=== PATIENT | male | born 1960 | race Caucasian/White ===

== ENCOUNTER 2016-10-27 06:13 | Inpatient (IN) ==
[2016-10-27] MEDS ORDERED: *HR* Norepinephrine 4 MG/4 ML VIAL IVC ONE (06:36)
[2016-10-27] MEDS ORDERED: *HR* Etomidate 20 MG/10 ML AMPUL IVP ONE (06:36)
[2016-10-27] MEDS ORDERED: *HR* Rocuronium Bromide 50 MG/5 ML VIAL ONE ×3 (06:36→10:22)
[2016-10-27] MEDS ORDERED: Famotidine 20 MG/2 ML VIAL ONE (06:36)
[2016-10-27] MEDS ORDERED: *HR* Phenylephrine 10 MG/ML VIAL ONE (06:36)
[2016-10-27] MEDS ORDERED: Protamine Sulfate 250 MG/25 ML VIAL IVP ONE (06:37)
[2016-10-27] MEDS ORDERED: Tranexamic Acid 1,000 MG/10 ML VIAL ONE ×2 (06:37→09:20)
[2016-10-27] MEDS ORDERED: *HR* Midazolam HCl 5 MG/5 ML VIAL IVP ONE ×2 (06:43→10:41)
[2016-10-27] MEDS ORDERED: *HR* FentaNYL (PF) 1,000 MCG/20 ML VIAL ONE (06:43)
[2016-10-27] MEDS ORDERED: Chlorhexidine Rinse 15 ML MOUTHWASH MM ONE (06:44)
[2016-10-27] MEDS ORDERED: ceFAZolin 1,000 MG in D5% in Water (Mini-Bag+) 100 ML IVPB ONE (06:44)
[2016-10-27] MEDS ORDERED: Nitroglycerin 25 MG/250 ML INFUS..BTL IVC ONE ×2 (06:48→10:36)
[2016-10-27] MEDS ORDERED: Verapamil 5 MG/2 ML VIAL ONE (06:58)
--- NOTE | 2016-10-27 07:09 | Anesthesia Evaluation PreOp ---
Date of Encounter: 10/27/16 Time of Encounter: 07:07 - Past History Planned Operation: CABG Cardiac History: [place], Angina, HTN, Hyperlipidemia Pulmonary History: Denies Any Significant HX CODING ADVISOR History: Denies Any Significant HX Other Medical History: Diabetes Type II, Other (PVD) Anesthesia History: No Prior Anesthetic Complications (Patient denies anesthetic issues, Has left BKA and right toe amputation as well as Katy and appy) Alcohol Use: rarely Drug use: none Medications and Allergies GlipiZIDE [Glucotrol] 10 mg PO DAILY 09/03/15 [History] Insulin Glargine,Hum.rec.anlog [Lantus Solostar] 48 units SQ HS 09/03/15 [ History] Metformin [Glucophage] 1,000 mg PO BIDWM 09/03/15 [History] Pravastatin Sodium [Pravachol] 40 mg PO DAILY 09/03/15 [History] Losartan [Cozaar] 50 mg PO DAILY 10/06/16 [History] Aspirin 81 mg PO DAILY #30 tab.chew 10/22/16 [Rx] Metoprolol [Lopressor] 25 mg PO BID #60 tablet 10/22/16 [Rx] Multivitamin [Multivitamins] 1 each PO DAILY 10/22/16 [History] [place]-3/Dha/Epa/Fish Oil [[place] 3 500 Softgel] 1 each PO DAILY 10/22/16 [History ] Allergies No Known Allergies Allergy (Verified 09/03/15 09:27) - Meds/Allergy Pre-op Review Medications Reviewed: Yes Allergies Reviewed: Yes Beta Blockers on Current Med List: No Anesthesia Results - Labs Laboratory Tests 10/15/16 10/15/16 14:39 14:39 WBC 7.2 Hgb 15.5 Hct 45.6 Plt Count 256 Sodium 138 Potassium 4.7 H BUN 23 Creatinine 1.22 - Imaging EKG: report reviewed, image reviewed Additional studies: Echo shows EF 60% with no valvular problems Anesthesia Exam Selected Entries 10/27/16 06:37 Temperature 98.1 F Pulse Rate 99 Respiratory Rate 18 Blood Pressure 142/81 O2 Sat by Pulse Oximetry 96 Weight: 261lbs NPO (# of Hours): 8 Pain Scale: 1 Pain Scale Used: Numeric (1 - 10) - HEENT Pupil (Motor): EOMI Mallampati: III Teeth: Edentulous Oral Opening: Greater than 3 - CODING ADVISOR LOC: Oriented CODING ADVISOR Motor: Normal RUE, Normal LUE, Normal RLE, Normal LLE, Normal Face CODING ADVISOR Sensory: Normal: RUE, LUE, RLE, LLE, Face - Cardiac Rhythm: Regular Murmur: None - Pulmonary Breath Sounds: bilateral Clear Respiratory Effort: Symmetrical Anesthesia Assess/Plan ASA Score: 4 Modified Nette Scale for Level of Consciousness: Cooperative, oriented, and tranquil Anesthetic Plan: General Autologous Blood: No Monitoring Plan: Standard Monitors, A-Line, PAC Recovery Plan: ICU (discussed risks of GA, lines, blood and need for ICU and possible NABIL discussed. Questions answered and agrees to proceed.)
[2016-10-27] MEDS ORDERED: CeFAZolin Pre 2,000 MG/100 ML 2,000 MG/100 ML BAG IVPB ONE (07:16)
[2016-10-27] MEDS ORDERED: Insulin Regular, Human 100 UNIT/ML ONE (07:27)
--- NOTE | 2016-10-27 07:28 | History & Physical Report ---
Date of Encounter: 10/27/16 Time of Encounter: 07:26 24 Hour HP Update - Instructions Instructions: If the History and Physical is less than 30 days old and was completed prior to A.M. admission and or procedure and has NOT been updated on calendar day of procedure please complete this update prior to performing procedure. - Update Patient reports changes in Medical Condition: No Changes in assessment/condition: No Changes in Medication: No Preop tests/diagnostics Reviewed: Yes Pre-Op MRSA Screen: Negative Surgery Remains Indicated: Yes Consent for Planned Operative Procedure(s) Verified: Yes - Pre-Operative Checklist Preoperative Checklist Indicated: Yes Prophylactic Antibiotic Ordered: Yes Home Medications Include Beta John Paul: Yes Beta John Paul Taken Today (Day of Surgery): Yes Beta John Paul Taken Yesterday (Day Prior to Surgery): Yes Is VTE Prophylaxis Indicated?: Yes (Carotid duplex reveals no carotid disease. Venous mapping reveals that the right greater saphenous vein is usable from below the knee to the groin. Upper extremity mapping reveals patent radial arteries. However, the ulnar arteries are small and do have calcific plaquing. He does have negative Tunde's test bilaterally. The patient did not take aspirin this morning because of gastric upset.)
[2016-10-27] MEDS ORDERED: Ringers Solution, Lactated 1,000 ML IVC SCH (07:45)
[2016-10-27] MEDS ORDERED: *HR* Magnesium Sulfate 2 GM/50 ML PIGGYBACK IVPB ONE (08:22)
[2016-10-27] MEDS ORDERED: Albumin Human 25% 25 GM/100 ML IV.SOLN IV ONE (08:22)
[2016-10-27] MEDS ORDERED: *HR* Phenylephrine 10 MG/ML VIAL IVC ONE (08:22)
[2016-10-27] MEDS ORDERED: Sodium Bicarbonate 50 MEQ/50 ML VIAL IVC ONE (08:22)
[2016-10-27] MEDS ORDERED: Mannitol 25% vial 12.5 GM/50 ML VIAL IVP ONE (08:22)
[2016-10-27] MEDS ORDERED: *HR* Heparin 10,000 UNIT/10 ML VIAL IV ONE (08:22)
[2016-10-27] MEDS ORDERED: Lidocaine 2% Syringe 100 MG/5 ML IV ONE (08:22)
--- NOTE | 2016-10-27 08:44 | Anesthesia Procedures ---
Date of Encounter: 10/27/16 Time of Encounter: 07:50 Procedures: Anesthesia - Arterial Line Consent obtained: written consent Time out performed: Yes Sedation: Versed (mg): 3 Sedation: Fentanyl (mcg): 150 Size (Gauge): 20 Length (inches): 5 Technique Used: sterile prep, guide wire technique, direct puncture technique Post-Procedure: line taped into place, dry sterile dressing placed Patient tolerated procedure: well, no complications Complications: none Site: Radial L (attempt x 1) - Central Line Placement Right IJ Consent obtained: written consent Time out performed: Yes Patient placed on monitor/pulse ox: Yes prep: mask, gown, gloves Central line prep: Chlorhexidine scrub Ultrasound used for placement: Yes Technique: Seldinger Lumen Inserted: Introducer Post procedure: sutured in place, good blood return, all ports aspirated, flushed, capped, sterile dressing applied Patient tolerated procedure: well, no complications Complications: none Comments: attempt x 1. [place] placed without inducing arrythmia. Wedge approx 52 cm
[2016-10-27] MEDS ORDERED: *HR* FentaNYL (PF) 250 MCG/5 ML VIAL ONE (10:41)
[2016-10-27] MEDS: Insulin Human Regular 100 UNIT in 0.9 % Sodium Chloride 100 ML IVC SCH ×2 (12:15→23:53)
[2016-10-27] MEDS ORDERED: Insulin Regular, Human 100 UNIT/ML IV PRN (12:41)
[2016-10-27] MEDS ORDERED: Ondansetron 4 MG/2 ML VIAL IVP PRN (12:41)
[2016-10-27] MEDS ORDERED: Potassium Chloride 40 MEQ/200 ML BAG IVPB PRN (12:41)
[2016-10-27] MEDS ORDERED: Naloxone 0.4 MG/ML INJ IVP PRN (12:41)
[2016-10-27] MEDS ORDERED: *HR* Dextrose 50 % in Water (Syg) 50 ML SYRINGE IVP PRN ×2 (12:41→14:14)
[2016-10-27] MEDS ORDERED: *HR* Promethazine 25 MG/ML VIAL IVP PRN (12:41)
--- NOTE | 2016-10-27 12:42 | Operative Note ---
Date of procedure: 10/27/16 Procedure in Detail: Preoperative diagnosis. Coronary artery disease. Postoperative diagnosis. Same. Procedures. Coronary artery bypass grafting 3 with the left internal mammary artery to the LAD and saphenous vein grafts to the obtuse marginal branch of the circumflex and posterolateral branch of the right coronary artery. Surgeon Dr. Morales Cunningham. Anesthesia Dr. Tl Spence. Asst. Fernando Oliva. Patient is a 56-year-old gentleman with a history of hypertension, hypercholesterolemia and diabetes. He is status post left below the knee amputation and amputation of his right great toe. He presented with coronary artery disease and was referred for surgery. We did check a preoperative noninvasive testing. His carotid duplex revealed no significant disease. His upper extremity arterial studies revealed patent ulnar and radial arteries, but both ulnar arteries were small and had calcific plaquing. He is right lower extremity venous duplex revealed that he had a patent and usable right greater saphenous vein. The patient was brought to the operating room where he was prepped and draped in standard fashion. He underwent a general anesthetic. The right greater saphenous vein was harvested from below the knee to the right groin. This was done through 2 small incisions using the scope. These incisions were supple and closed with a deep layer of 0 Vicryl and 2-0 Vicryl subcuticular stitch. Standard median sternotomy was performed. Left internal mammary artery was harvested in standard fashion using the Bovie electrocoagulation. This was found to be an adequate vessel with adequate pulse and flow following this, the mammary retractor was removed in the standard sternal poultry barn manager was inserted. Pericardium was opened in the midline and suspended with 2-0 silk stay sutures. Double purse string of 20 Surgilon was placed in the aorta for the aortic cannulation site. Purse string of 20 Surgilon was placed in the right atrial appendage for the venous uptake. The patient was heparinized. The aorta was cannulated without difficulty. 2 stage venous uptake cannula was inserted through the right atrial appendage. Pursestring of 3-0 silk was placed in the aorta and the cardioplegia needle was inserted through here. Patient was placed on cardiopulmonary bypass and cooled to 34.9. At this point, the aorta was crossclamped and a liter of antegrade heart plegia was given. Topical cooling with iced saline slush was also done. Attention was first turned to the right coronary artery. The posterior descending branch was dissected free with a [place] blade and found to be too small for grafting. The posterolateral branch was dissected free with the [place] [employer] blade and opened with a Match[place] blade and the Nance scissors. This had luminal 1/2 mm with mild diffuse disease. Standard end- to-side anastomosis was constructed using the saphenous vein and a 7-0 Prolene. When this is completed, the patient received an additional dose of antegrade cardioplegia and topical cooling. Attention was turned to the obtuse marginal branch of the circumflex. This was dissected free with the [place] blade and opened with a Match[place] [employer] blade and the Nance scissors. This had luminal 1/2 mm and did have mild to moderate diffuse disease. A standard end to side anastomosis was constructed using the saphenous vein and a 7-0 Prolene. When this was completed, the patient received the last dose of antegrade cardioplegia and topical cooling. Mammary pedicle was harvested. Tonsil clamp was placed distally and it was divided with the Metzenbaum scissors. Distal end was tied with 2-0 silk suture. Proximal end was trimmed and brought into the wound. The LAD was dissected free with a [place] blade. The distal half was small and diffusely diseased although we had to the tip. It was opened in the midportion with a Match[place] blade and the Nance scissors. It had a lumen of 1/2 mm with mild to moderate diffuse disease. A standard end-to-side anastomosis was constructed using the mammary artery and a 7-0 Prolene. When this was completed the bulldog clamp was removed. There was some bleeding at the tip. This was controlled using a 7-0 Prolene suture, FloSeal and fibrillar. This point the cross-clamp was removed total cross-clamp time was 47 minutes. Side biting clamp was placed in the aorta and the cardioplegia needle was removed. 2 holes were made in the aorta using the [place] blade and a 4.5 mm aortic punch. 2 proximal anastomoses were constructed in standard fashion using the saphenous veins and 5-0 Prolene' s. The circumflex anastomosis to the superior in the right anastomosis was inferior. Following this, side biting clamp was removed. Grafts were de-aired using #25-gauge needle and the previously placed bulldog clamps were removed. Distal anastomoses were inspected and found to be hemostatic. Proximal anastomoses were marked with a marker Ray-Corey sponge. A pair of ventricular pacing wires was left. A total of 3 chest tubes were left. A 3 to right angle chest tube in the left pleural space. A 32 right angle chest tube in the pericardial well. A 42 mediastinal chest tube. Patient is weaned from bypass requiring no pressors for support. He was decannulated and protamine was given. Hemostasis was good and the hemodynamics were good. Total bypass time was 86 minutes. Total cross-clamp time was 47 minutes. He been cooled to 34.9. He was returned to intensive care unit in satisfactory and stable condition.
[2016-10-27] MEDS ORDERED: 0.9 % Sodium Chloride 1,000 ML ONE (12:44)
[2016-10-27 12:56] LABS: ABG Base Excess -0.7 mEq/L (-2.0 to 3.0); ABG HCO3 25.4 mEQ/L (21-27); ABG Oxygen Saturation 99 % (95-98); ABG PCO2 47 mmHg (35-45); ABG PO2 128 mmHg (85-104); ABG TCO2 26.8 mEq/L (20-26); BUN/Creatinine Ratio 23 (6-26); Calcium 8.2 mg/dL (8.6-10.8); Carbon Dioxide 21 mEq/L (19-29); Chloride 107 mEq/L (98-109); Glucose 208 mg/dL (70-99); Magnesium 2.4 mg/dL (1.6-2.6); Osmolality,Calculated 292 (280-300); Potassium 4.4 mEq/L (3.5-4.5); Sodium 136 mEq/L (136-145); eGFR For African Americans > 60 (> 60); eGFR For Non-African Americans > 60 (> 60)
[2016-10-27 12:58] LABS: ABG PH 7.34 pH Units (7.32-7.45); Blood Urea Nitrogen 25 mg/dL (8-26)
[2016-10-27 12:59] LABS: Blood Gas FiO2 50 %; Blood Gas PEEP 5 cm H2O; Blood Gas Respiration Rate 12; Blood Gas VT 750 cc
[2016-10-27 13:01] LABS: Hematocrit 34.9 % (37.5-50.1); Hemoglobin 11.9 g/dL (12.9-16.9); Mean Corpuscular HGB Conc 34.1 g/dL (31.6-35.5); Mean Corpuscular Hemoglobin 27.9 pg (28.0-33.3); Mean Corpuscular Volume 81.9 fL (83.0-100.0); Mean Platelet Volume 9.9 fL (9.4-12.4); Platelet Count 150 K/mcL (140-400); Red Blood Count 4.26 M/mcL (4.19-5.50); Red Cell Distribution Width 13.2 % (11.5-14.5)
[2016-10-27 13:31] LABS: INR 1.2
[2016-10-27 13:33] LABS: Activated Partial Thrombo Time 27.3 Seconds (26.0-36.0)
[2016-10-27 13:37] LABS: Prothrombin Time 13.3 Seconds (9.4-12.1)
[2016-10-27] MEDS: 0.9 % Sodium Chloride 1,000 ML IVC SCH (13:56)
[2016-10-27 14:11] LABS: Basophils # 0.2 K/mcL (0.0-0.2); Eosinophils # 0.2 K/mcL (0.0-0.6); Lymphocytes # 1.8 K/mcL (0.6-4.6); Monocytes # 0.6 K/mcL (0.0-1.3); Neutrophils # 13.1 K/mcL (1.6-8.9); Platelet Estimate Normal (Normal); Reactive Lymphocytes Present (Not Present)
--- NOTE | 2016-10-27 15:49 | Electrocardiograph Report ---
Test Date: 2016-10-27 Pat Name: Luisito Llamas Department: 106 Room: [facility] Gender: M Shipper: GLENN : 1960 Requested By: Tl Spence Order Number: [id number] Reading MD: Kadeem Love DO Measurements Intervals [place] Rate: 91 P: 45 FL: 148 QRS: 131 QRSD: 145 T: -1 QT: 390 QTc: 439 Interpretive Statements SINUS RHYTHM WITH OCCASIONAL VENTRICULAR PREMATURE COMPLEXES RIGHT BUNDLE BRANCH BLOCK LEFT POSTERIOR FASCICULAR BLOCK Electronically Signed On 10-27-16 15:38:38 EST by Kadeem Love DO
[2016-10-27] MEDS: ceFAZolin 3,000 MG in D5% in Water 100 ML IVPB SCH ×2 (17:25→23:23)
[2016-10-27 17:31] LABS: ABG HCO3 24.8 mEQ/L (21-27); ABG Oxygen Saturation 100 % (95-98); ABG PCO2 40 mmHg (35-45); ABG PO2 179 mmHg (85-104)
[2016-10-27 17:32] LABS: Blood Gas FiO2 50 %
[2016-10-27 17:41] LABS: Basophils % 0.2 %; Eosinophils % 0.1 %; Hematocrit 34.8 % (37.5-50.1); Hemoglobin 11.9 g/dL (12.9-16.9); Immature Granulocytes % 1.1 % (0-4); Lymphocytes % 6.2 %; Mean Corpuscular HGB Conc 34.2 g/dL (31.6-35.5); Mean Corpuscular Hemoglobin 27.8 pg (28.0-33.3); Mean Corpuscular Volume 81.3 fL (83.0-100.0); Mean Platelet Volume 10.2 fL (9.4-12.4); Monocytes # 1.1 K/mcL (0.0-1.3); Monocytes % 7.1 %; Neutrophils # 13.2 K/mcL (1.6-8.9); Platelet Count 158 K/mcL (140-400); Red Blood Count 4.28 M/mcL (4.19-5.50); Red Cell Distribution Width 13.3 % (11.5-14.5); Segmented Neutrophils % 85.3 %
[2016-10-27 17:48] LABS: BUN/Creatinine Ratio 24 (6-26); Blood Urea Nitrogen 24 mg/dL (8-26); Calcium 8.3 mg/dL (8.6-10.8); Carbon Dioxide 21 mEq/L (19-29); Chloride 108 mEq/L (98-109); Glucose 203 mg/dL (70-99); Osmolality,Calculated 292 (280-300); Potassium 4.5 mEq/L (3.5-4.5); eGFR For African Americans > 60 (> 60); eGFR For Non-African Americans > 60 (> 60)
--- NOTE | 2016-10-27 17:51 | Electrocardiograph Report ---
[facility] Test Date: 2016-10-27 Pat Name: Luisito Llamas Department: 109 Room: [facility] Gender: M Saw Repairer: RENE : 1960 Requested By: Morales Cunningham Order Number: [id number] Reading MD: John Paul Ghosh MD Measurements Intervals [place] Rate: 99 P: 58 NC: 159 QRS: 112 QRSD: 146 T: 30 QT: 378 QTc: 435 Interpretive Statements SINUS RHYTHM RIGHT BUNDLE BRANCH BLOCK LEFT POSTERIOR FASCICULAR BLOCK BIFASCICULAR BLOCK Electronically Signed On 10-27-16 17:50:22 EST by John Paul Ghosh MD
[2016-10-27 17:52] LABS: Sodium 136 mEq/L (136-145)
[2016-10-27] MEDS: niCARdipine 20 MG/200 ML MLS IVC SCH ×4 (19:20→23:25)
[2016-10-27] MEDS: Norepinephrine 4 MG in D5% in Water 250 ML IVC SCH ×2 (19:20→23:56)
[2016-10-27] MEDS: Nitroglycerin 25 MG/250 ML INFUS..BTL IVC SCH ×3 (19:21→23:25)
[2016-10-27 19:25] LABS: ABG Base Excess 0.4 mEq/L (-2.0 to 3.0); ABG HCO3 24.6 mEQ/L (21-27); ABG Oxygen Saturation 98 % (95-98); ABG PCO2 37 mmHg (35-45); ABG PH 7.43 pH Units (7.32-7.45); ABG PO2 103 mmHg (85-104); ABG TCO2 25.7 mEq/L (20-26)
[2016-10-27 19:27] LABS: Blood Gas FiO2 30 %
[2016-10-27] MEDS ORDERED: Chlorhexidine Rinse 15 ML MOUTHWASH MM SCH (21:00)
[2016-10-27] MEDS: *HR* OxyCODONE/APAP 5/325 TABLET PO PRN (22:33)
[2016-10-28 00:47] LABS: ABG Base Excess 1.2 mEq/L (-2.0 to 3.0); ABG Oxygen Saturation 97 % (95-98); ABG PCO2 41 mmHg (35-45); ABG PH 7.41 pH Units (7.32-7.45); ABG PO2 94 mmHg (85-104); ABG TCO2 27.3 mEq/L (20-26)
[2016-10-28 00:48] LABS: Blood Gas FiO2 32 %; Blood Gas Liter Flow 3 L/MIN
[2016-10-28] MEDS: 0.9 % Sodium Chloride 1,000 ML IVC SCH (01:31)
[2016-10-28] MEDS: *HR* OxyCODONE/APAP 5/325 TABLET PO PRN ×2 (02:13→14:15)
[2016-10-28] MEDS: niCARdipine 20 MG/200 ML MLS IVC SCH (04:14)
[2016-10-28 04:22] LABS: Basophils % 0.2 %; Hematocrit 34.4 % (37.5-50.1); Hemoglobin 11.5 g/dL (12.9-16.9); Immature Granulocytes % 0.9 % (0-4); Lymphocytes # 2.1 K/mcL (0.6-4.6); Lymphocytes % 14.2 %; Mean Corpuscular HGB Conc 33.4 g/dL (31.6-35.5); Mean Corpuscular Hemoglobin 27.8 pg (28.0-33.3); Mean Corpuscular Volume 83.1 fL (83.0-100.0); Mean Platelet Volume 9.9 fL (9.4-12.4); Monocytes # 1.5 K/mcL (0.0-1.3); Neutrophils # 11.3 K/mcL (1.6-8.9); Platelet Count 155 K/mcL (140-400); Red Blood Count 4.14 M/mcL (4.19-5.50); Red Cell Distribution Width 13.7 % (11.5-14.5); Segmented Neutrophils % 74.7 %
[2016-10-28 04:33] LABS: BUN/Creatinine Ratio 24 (6-26); Blood Urea Nitrogen 24 mg/dL (8-26); Calcium 8.1 mg/dL (8.6-10.8); Carbon Dioxide 21 mEq/L (19-29); Chloride 108 mEq/L (98-109); Glucose 133 mg/dL (70-99); Magnesium 1.9 mg/dL (1.6-2.6); Osmolality,Calculated 288 (280-300); Potassium 4.1 mEq/L (3.5-4.5); Sodium 136 mEq/L (136-145); eGFR For African Americans > 60 (> 60); eGFR For Non-African Americans > 60 (> 60)
[2016-10-28 04:40] LABS: INR 1.1; Prothrombin Time 12.2 Seconds (9.4-12.1)
[2016-10-28 04:42] LABS: Activated Partial Thrombo Time 27.7 Seconds (26.0-36.0)
[2016-10-28] MEDS: *HR* Morphine 2 MG/ML SYRINGE IVP PRN ×3 (04:52→14:15)
[2016-10-28] MEDS: Nitroglycerin 25 MG/250 ML INFUS..BTL IVC SCH (04:52)
--- NOTE | 2016-10-28 07:25 | Cardiothoracic Progress Note ---
Date of Encounter: 10/28/16 Time of Encounter: 07:23 - Assessment and plan (1) Coronary artery disease Current Visit: No Status: Acute The assessment and plan as outlined above was discussed with the patient and/or family members who expressed understanding and agreement. All questions were answered. Discussion with patient/family: The patient is doing well. We will leave him in the ICU today to mobilize him. We will discontinue his Osseo-Cesia catheter, arterial line and IV fluids. Hopefully, we can discontinue his chest tubes later today or tomorrow. Hopefully , he can transfer to her room tomorrow morning. - Subjective Interval history: The patient is extubated and doing well. He has moderate postoperative pain. Vital Signs, Last 4 Hours Temp Pulse Resp BP Pulse Ox 10/28/16 06:47 99.8 F H 101 20 102/50 97 10/28/16 05:44 99.8 F H 102 24 119/50 96 10/28/16 04:49 100.1 F H 101 18 107/51 98 10/28/16 03:47 100.1 F H 104 24 104/47 97 Oxgyen Flow Rate Oxygen Flow Rate (LPM) 2 Clinical Data, last 8 Hours Output, Chest Tube Drainage 0 Amount [Mediastinal #3] Output, Chest Tube Drainage 0 Amount [Mediastinal #3] Output, Chest Tube Drainage 0 Amount [Mediastinal #3] Output, Chest Tube Drainage 20 Amount [Mediastinal #3] Output, Chest Tube Drainage 10 Amount [Mediastinal #3] Output, Chest Tube Drainage 10 Amount [Mediastinal #3] Output, Chest Tube Drainage 10 Amount [Mediastinal #3] Output, Chest Tube Drainage 10 Amount [Mediastinal #3] Output, Chest Tube Drainage 0 Amount [Mediastinal #2] Output, Chest Tube Drainage 20 Amount [Mediastinal #2] Output, Chest Tube Drainage 0 Amount [Mediastinal #2] Output, Chest Tube Drainage 10 Amount [Mediastinal #2] Output, Chest Tube Drainage 10 Amount [Mediastinal #2] Output, Chest Tube Drainage 10 Amount [Mediastinal #2] Output, Chest Tube Drainage 10 Amount [Mediastinal #2] Output, Chest Tube Drainage 10 Amount [Mediastinal #2] Output, Chest Tube Drainage 0 Amount [Mediastinal #1] Output, Chest Tube Drainage 0 Amount [Mediastinal #1] Output, Chest Tube Drainage 0 Amount [Mediastinal #1] Output, Chest Tube Drainage 15 Amount [Mediastinal #1] Output, Chest Tube Drainage 0 Amount [Mediastinal #1] Output, Chest Tube Drainage 0 Amount [Mediastinal #1] Output, Chest Tube Drainage 0 Amount [Mediastinal #1] Output, Chest Tube Drainage 15 Amount [Mediastinal #1] Output, Chest Tube Drainage 0 Amount [Mediastinal #1] Weight 10/26/16 10/27/16 10/28/16 23:59 23:59 23:59 Weight 139.253 kg Lungs are clear to percussion and auscultation. Heart is in a normal sinus rhythm. All incisions are healing well without signs of infection and the sternum is stable. Chest tube drainage is minimal. Chest x-ray reveals no pneumothorax. - Labs 10/28/16 04:08 10/28/16 04:08 Lab Results, Last 24 hours 10/27/16 10/27/16 10/27/16 12:24 12:24 12:24 WBC 16.0 H Hgb 11.9 L Hct 34.9 L Plt Count 150 INR 1.2 APTT 27.3 Sodium 136 Potassium 4.4 Chloride 107 Carbon Dioxide 21 BUN 25 Creatinine 1.11 Glucose 208 H Calcium 8.2 L Magnesium 2.4 10/27/16 10/27/16 10/28/16 17:17 17:17 04:08 WBC 15.5 H 15.1 H Hgb 11.9 L 11.5 L Hct 34.8 L 34.4 L Plt Count 158 155 INR APTT Sodium 136 Potassium 4.5 Chloride 108 Carbon Dioxide 21 BUN 24 Creatinine 1.02 Glucose 203 H Calcium 8.3 L Magnesium 10/28/16 10/28/16 04:08 04:08 WBC Hgb Hct Plt Count INR 1.1 APTT 27.7 Sodium 136 Potassium 4.1 Chloride 108 Carbon Dioxide 21 BUN 24 Creatinine 1.01 Glucose 133 H Calcium 8.1 L Magnesium 1.9 Consult Discharge Plan - Plan Referrals: Darren Virk Jr, MD [Primary Care Provider] -
[2016-10-28] MEDS: Aspirin Enteric Coated 81 MG Tablet PO SCH (09:34)
--- NOTE | 2016-10-28 11:27 | Anesthesia Evaluation Post Op ---
Date of Encounter: 10/28/16 Time of Encounter: 11:25 - Vital Signs Vital Signs: Selected Entries 10/28/16 10:00 Pulse Rate 102 Respiratory Rate 16 Blood Pressure 108/59 O2 Sat by Pulse Oximetry 92 L - Lungs Lungs: Clear Ascult./Percussion - Airway Airway: Non-obstructed - Cardiovascular Regular Rate - Mental Status Mental Status: Alert & Oriented, Answers Appropriately - Pain Pain Scale: 3 Pain Scale used: Numeric (1 - 10) - Nausea Vomiting Nausea Vomiting: Not Present - Hydration Hydration: Tolerates oral liquids, Peck catheter - Discharge PostOp Status: Transfer Patient to floor (Patient extubated. Lines and chest tubes will be DC'd. Transfer to floor when Dr. Cunningham orders it.)
[2016-10-28] MEDS ORDERED: Dextrose Gel 15 GM PO PRN ×2 (12:09)
[2016-10-28] MEDS ORDERED: D5% in Water 1,000 ML IV PRN (12:09)
[2016-10-28] MEDS: Insulin LISPRO 300 UNITS/3 ML VIAL SQ SCH (16:19)
[2016-10-28] MEDS ORDERED: Insulin LISPRO 300 UNITS/3 ML VIAL SQ SCH (21:00)
[2016-10-29] MEDS: *HR* Morphine 2 MG/ML SYRINGE IVP PRN ×4 (00:05→22:03)
[2016-10-29] MEDS: *HR* OxyCODONE/APAP 5/325 TABLET PO PRN ×4 (00:06→20:36)
[2016-10-29 03:56] LABS: Basophils % 0.2 %; Eosinophils % 0.3 %; Hematocrit 33.4 % (37.5-50.1); Immature Granulocytes % 0.9 % (0-4); Lymphocytes # 2.1 K/mcL (0.6-4.6); Mean Corpuscular HGB Conc 32.9 g/dL (31.6-35.5); Mean Corpuscular Hemoglobin 27.6 pg (28.0-33.3); Mean Corpuscular Volume 83.9 fL (83.0-100.0); Mean Platelet Volume 10.5 fL (9.4-12.4); Monocytes # 1.4 K/mcL (0.0-1.3); Neutrophils # 10.1 K/mcL (1.6-8.9); Platelet Count 145 K/mcL (140-400); Red Blood Count 3.98 M/mcL (4.19-5.50); Red Cell Distribution Width 13.7 % (11.5-14.5); Segmented Neutrophils % 73.6 %
[2016-10-29 04:08] LABS: BUN/Creatinine Ratio 24 (6-26); Blood Urea Nitrogen 21 mg/dL (8-26); Calcium 8.2 mg/dL (8.6-10.8); Carbon Dioxide 23 mEq/L (19-29); Chloride 106 mEq/L (98-109); Glucose 195 mg/dL (70-99); Osmolality,Calculated 288 (280-300); Potassium 4.2 mEq/L (3.5-4.5); Sodium 135 mEq/L (136-145); eGFR For African Americans > 60 (> 60); eGFR For Non-African Americans > 60 (> 60)
[2016-10-29] MEDS: niCARdipine 20 MG/200 ML MLS IVC SCH ×6 (07:10→07:22)
[2016-10-29] MEDS: Norepinephrine 4 MG in D5% in Water 250 ML IVC SCH (07:11)
[2016-10-29] MEDS: Nitroglycerin 25 MG/250 ML INFUS..BTL IVC SCH ×4 (07:11→07:22)
[2016-10-29] MEDS: Insulin LISPRO 300 UNITS/3 ML VIAL SQ SCH ×4 (07:12→21:49)
--- NOTE | 2016-10-29 07:38 | Cardiothoracic Progress Note ---
Date of Encounter: 10/29/16 Time of Encounter: 07:38 - Assessment and plan (1) Coronary artery disease Current Visit: No Status: Acute We will leave the Peck catheter for several days. We will transfer the patient to the floor. - Subjective Interval history: The patient has no complaints. The Peck catheter was reinserted this morning for urinary retention. Vital Signs, Last 4 Hours Temp Pulse Resp BP Pulse Ox 10/29/16 07:24 104 20 141/69 95 10/29/16 06:00 110 22 145/87 96 10/29/16 05:04 100.0 F H 10/29/16 05:00 100.0 F H 86 22 125/72 96 10/29/16 04:00 101 12 116/61 96 Oxgyen Flow Rate Oxygen Flow Rate (LPM) 2 Clinical Data, last 8 Hours Output, Urine Amount 0 Weight 10/27/16 10/28/16 10/29/16 23:59 23:59 23:59 Weight 139.253 kg 143.471 kg Lungs are clear to percussion and auscultation. Heart is in a normal sinus rhythm. All incisions are healing well without signs of infection and the sternum is stable. Chest x-ray after chest tube removal reveals no pneumothorax. - Labs 10/29/16 03:20 10/29/16 03:20 Lab Results, Last 24 hours 10/29/16 10/29/16 03:20 03:20 WBC 13.7 H Hgb 11.0 L Hct 33.4 L Plt Count 145 Sodium 135 L Potassium 4.2 Chloride 106 Carbon Dioxide 23 BUN 21 Creatinine 0.86 Glucose 195 H Calcium 8.2 L - VTE Documentation of Mechanical Device: Graduated compression elastic hosiery Consult Discharge Plan - Plan Referrals: Darren Virk Jr, MD [Primary Care Provider] -
[2016-10-29] MEDS: Aspirin Enteric Coated 81 MG Tablet PO SCH (07:49)
[2016-10-29] MEDS ORDERED: Furosemide 20 MG/2 ML VIAL IVP SCH (09:00)
[2016-10-29] MEDS ORDERED: D5% in Water 1,000 ML IV PRN (10:25)
[2016-10-29] MEDS ORDERED: *HR* Promethazine 25 MG/ML VIAL IVP PRN (10:25)
[2016-10-29] MEDS ORDERED: Dextrose Gel 15 GM PO PRN ×2 (10:25)
[2016-10-29] MEDS ORDERED: Ondansetron 4 MG/2 ML VIAL IVP PRN (10:25)
[2016-10-29] MEDS ORDERED: Naloxone 0.4 MG/ML INJ IVP PRN (10:25)
[2016-10-29] MEDS ORDERED: *HR* Dextrose 50 % in Water (Syg) 50 ML SYRINGE IVP PRN (10:25)
[2016-10-29 11:12] LABS: ABG Glucose 338 mg/dL (60-95); ABG HCO3 24.4 mEQ/L (21-27); ABG Hematocrit 44 % (35-51); ABG Ionized Calcium 1.13 mmol/L (1.15-1.35); ABG Oxygen Saturation 100 % (95-98); ABG PCO2 52 mmHg (35-45); ABG PH 7.28 pH Units (7.32-7.45); ABG PO2 299 mmHg (85-104)
[2016-10-29 11:12] LABS: ABG Base Excess -5.4 mEq/L (-2.0 to 3.0); ABG Glucose 247 mg/dL (60-95); ABG HCO3 22.3 mEQ/L (21-27); ABG Hematocrit 39 % (35-51); ABG Ionized Calcium 0.98 mmol/L (1.15-1.35); ABG Oxygen Saturation 99 % (95-98); ABG PCO2 52 mmHg (35-45); ABG PH 7.24 pH Units (7.32-7.45); ABG PO2 135 mmHg (85-104); ABG TCO2 23.9 mEq/L (20-26)
[2016-10-29 11:13] LABS: ABG Base Excess -0.8 mEq/L (-2.0 to 3.0); ABG Glucose 291 mg/dL (60-95); ABG HCO3 26.4 mEQ/L (21-27); ABG Hematocrit 34 % (35-51); ABG Ionized Calcium 1.04 mmol/L (1.15-1.35); ABG Oxygen Saturation 100 % (95-98); ABG PCO2 55 mmHg (35-45); ABG PH 7.29 pH Units (7.32-7.45); ABG PO2 212 mmHg (85-104); ABG TCO2 28.1 mEq/L (20-26)
[2016-10-29 11:13] LABS: ABG Base Excess -1.7 mEq/L (-2.0 to 3.0); ABG Glucose 288 mg/dL (60-95); ABG HCO3 24.3 mEQ/L (21-27); ABG Hematocrit 30 % (35-51); ABG Ionized Calcium 1.02 mmol/L (1.15-1.35); ABG Oxygen Saturation 100 % (95-98); ABG PCO2 46 mmHg (35-45); ABG PH 7.33 pH Units (7.32-7.45); ABG PO2 394 mmHg (85-104); ABG TCO2 25.7 mEq/L (20-26)
[2016-10-29 11:13] LABS: ABG Base Excess -1.7 mEq/L (-2.0 to 3.0); ABG Glucose 236 mg/dL (60-95); ABG HCO3 24.7 mEQ/L (21-27); ABG Hematocrit 28 % (35-51); ABG Ionized Calcium 1.03 mmol/L (1.15-1.35); ABG Oxygen Saturation 100 % (95-98); ABG PCO2 49 mmHg (35-45); ABG PH 7.31 pH Units (7.32-7.45); ABG PO2 318 mmHg (85-104); ABG TCO2 26.2 mEq/L (20-26)
[2016-10-29] MEDS: *HR* Metformin 500 MG TABLET PO SCH ×2 (11:57→17:27)
[2016-10-29] MEDS: Multivit/Ca/Min/Fe/FA 1 TAB TABLET PO SCH (11:57)
[2016-10-29] MEDS: *HR* GlipiZIDE XL (24 HR) 10 MG TABLET PO SCH (11:57)
[2016-10-29] MEDS: *HR* Heparin 5,000 UNIT/ML VIAL SQ SCH (17:27)
[2016-10-29] MEDS ORDERED: Chlorhexidine Rinse 15 ML MOUTHWASH MM SCH (21:00)
[2016-10-29] MEDS: Chlorhexidine Rinse 15 ML MOUTHWASH MM SCH (21:48)
[2016-10-29] MEDS: Insulin DETEMIR 100 UNIT/ML X5UNITS SQ SCH (21:49)
[2016-10-29] MEDS: Furosemide 20 MG/2 ML VIAL IVP SCH (21:49)
[2016-10-30] MEDS: *HR* OxyCODONE/APAP 5/325 TABLET PO PRN ×6 (00:49→22:58)
[2016-10-30 04:58] LABS: Basophils % 0.2 %; Eosinophils # 0.2 K/mcL (0.0-0.6); Eosinophils % 1.6 %; Hematocrit 31.4 % (37.5-50.1); Hemoglobin 10.3 g/dL (12.9-16.9); Immature Granulocytes % 0.8 % (0-4); Lymphocytes # 2.2 K/mcL (0.6-4.6); Lymphocytes % 19.9 %; Mean Corpuscular HGB Conc 32.8 g/dL (31.6-35.5); Mean Corpuscular Hemoglobin 27.9 pg (28.0-33.3); Mean Corpuscular Volume 85.1 fL (83.0-100.0); Mean Platelet Volume 10.3 fL (9.4-12.4); Monocytes # 1.1 K/mcL (0.0-1.3); Monocytes % 10.2 %; Neutrophils # 7.4 K/mcL (1.6-8.9); Platelet Count 152 K/mcL (140-400); Red Blood Count 3.69 M/mcL (4.19-5.50); Red Cell Distribution Width 13.8 % (11.5-14.5); Segmented Neutrophils % 67.3 %
[2016-10-30 05:12] LABS: BUN/Creatinine Ratio 29 (6-26); Blood Urea Nitrogen 27 mg/dL (8-26); Calcium 8.4 mg/dL (8.6-10.8); Carbon Dioxide 23 mEq/L (19-29); Chloride 105 mEq/L (98-109); Glucose 147 mg/dL (70-99); Osmolality,Calculated 290 (280-300); Potassium 4.3 mEq/L (3.5-4.5); Sodium 136 mEq/L (136-145); eGFR For African Americans > 60 (> 60); eGFR For Non-African Americans > 60 (> 60)
[2016-10-30] MEDS: *HR* Heparin 5,000 UNIT/ML VIAL SQ SCH ×2 (06:33→16:51)
[2016-10-30] MEDS: Insulin LISPRO 300 UNITS/3 ML VIAL SQ SCH ×4 (08:07→21:39)
[2016-10-30] MEDS: Aspirin Enteric Coated 81 MG Tablet PO SCH (08:09)
[2016-10-30] MEDS: Multivit/Ca/Min/Fe/FA 1 TAB TABLET PO SCH (08:09)
[2016-10-30] MEDS: Furosemide 20 MG/2 ML VIAL IVP SCH ×2 (08:09→21:15)
[2016-10-30] MEDS: *HR* GlipiZIDE XL (24 HR) 10 MG TABLET PO SCH (08:09)
[2016-10-30] MEDS: *HR* Metformin 500 MG TABLET PO SCH ×2 (08:10→16:50)
[2016-10-30] MEDS: Chlorhexidine Rinse 15 ML MOUTHWASH MM SCH ×2 (08:10→21:14)
--- NOTE | 2016-10-30 09:49 | Cardiothoracic Progress Note ---
Date of Encounter: 10/30/16 Time of Encounter: 09:47 - Assessment and plan (1) Coronary artery disease Current Visit: No Status: Acute The patient is recovering well from his CABG3. He has been unable to ambulate due to his left BKA and recent CABG. Physical therapy has been working with the patient to improve his range of motion and strength. He patient will require ECF placement as a bridge to home upon discharge. The assessment and plan as outlined above was discussed with the patient and/or family members who expressed understanding and agreement. All questions were answered. Qualifiers: Coronary Disease-Associated Artery/Lesion type: [place] artery [place] vs. transplanted heart: [place] heart Associated angina: with stable angina Qualified Code(s): I25.118 - Atherosclerotic heart disease of [place] coronary artery with other forms of angina pectoris - Subjective Procedure(s) Performed: POD#3 S/P CABG3 Interval history: The patient is resting comfortably in his hospital bed. Vital Signs, Last 4 Hours Temp Pulse Resp BP Pulse Ox 10/30/16 07:16 97.9 F 93 20 120/73 97 Oxgyen Flow Rate Oxygen Flow Rate (LPM) 3 Weight 10/28/16 10/29/16 10/30/16 23:59 23:59 23:59 Weight 143.8 kg 143.8 kg - Physical Examination General: Conversant, No Apparent Distress Neck: No JVD, Normal carotid pulses Cardiac: Reg Rate and Rhythm, Normal S1 and S2, No Murmur Incision: No signs of infection, Dry/intact dressing Sternum: Stable Lungs: Normal Breath Sounds, No Wheeze, Rales, Rhonchi Neuro: Alert and responsive, No focal deficits noted Vascular: Normal capillary refill Extremities: No Clubbing, No Cyanosis, No Edema - Labs 10/30/16 04:20 10/30/16 04:20 Lab Results, Last 24 hours 10/30/16 10/30/16 04:20 04:20 WBC 10.9 Hgb 10.3 L Hct 31.4 L Plt Count 152 Sodium 136 Potassium 4.3 Chloride 105 Carbon Dioxide 23 BUN 27 H Creatinine 0.94 Glucose 147 H Calcium 8.4 L - VTE Documentation of Mechanical Device: Graduated compression elastic hosiery Consult Discharge Plan - Plan Referrals: Sweta Peguero CNP [Partnered Physician] - 11/06/16 10:40 am Darren Virk Jr, MD [Primary Care Provider] - (SENT WEB REQUEST ON 10-29-16 @ [id number]) Morales Cunningham MD [Partnered Physician] - 11/27/16 1:15 pm Rush Leal MD [Partnered Physician] - 11/27/16 9:00 am (SENT WEB REQUEST ON 10-29-16 @ 0955 PATIENT HAS A FOLLOW UP FOR [facility] ON 10-27-16 @ 0900 BUT IT IS 4 WEEKS OUT.)
[2016-10-30] MEDS: *HR* Morphine 2 MG/ML SYRINGE IVP PRN (10:44)
[2016-10-30] MEDS: Insulin DETEMIR 100 UNIT/ML X5UNITS SQ SCH (21:39)
[2016-10-31] MEDS: *HR* OxyCODONE/APAP 5/325 TABLET PO PRN ×2 (06:18→20:16)
[2016-10-31] MEDS: *HR* Heparin 5,000 UNIT/ML VIAL SQ SCH ×2 (06:19→16:05)
--- NOTE | 2016-10-31 07:18 | Cardiothoracic Progress Note ---
Date of Encounter: 10/31/16 Time of Encounter: 07:16 - Assessment and plan (1) Coronary artery disease Current Visit: No Status: Acute The patient is recovering well from his CABG3. His activity is increasing slowly, though he was unable to ambulate yesterday due to swelling and his left BKA stump. Physical therapy will continue working with the patient to increase range of motion and strength. The patient will require ECF placement as a bridge to home upon discharge. The assessment and plan as outlined above was discussed with the patient and/or family members who expressed understanding and agreement. All questions were answered. Qualifiers: Coronary Disease-Associated Artery/Lesion type: [place] artery [place] vs. transplanted heart: [place] heart Associated angina: with stable angina Qualified Code(s): I25.118 - Atherosclerotic heart disease of [place] coronary artery with other forms of angina pectoris - Subjective Procedure(s) Performed: POD#4 S/P CABG3 Interval history: The patient is resting comfortably in his hospital bed. He was able to sit in a chair for at least 10 hours yesterday without difficulty. Vital Signs, Last 4 Hours Pulse 10/31/16 04:15 92 Oxgyen Flow Rate Oxygen Flow Rate (LPM) 3 Weight 10/29/16 10/30/16 10/31/16 23:59 23:59 23:59 Weight 143.8 kg 143.8 kg - Physical Examination General: Conversant, No Apparent Distress Neck: No JVD, Normal carotid pulses Cardiac: Reg Rate and Rhythm, Normal S1 and S2, No Murmur Incision: No signs of infection, Dry/intact dressing Sternum: Stable Lungs: Normal Breath Sounds, No Wheeze, Rales, Rhonchi Neuro: Alert and responsive, No focal deficits noted Vascular: Normal capillary refill Musculoskeletal: No Chest Wall Tenderness Extremities: No Clubbing, No Cyanosis, No Edema - Labs 10/30/16 04:20 10/30/16 04:20 - VTE Documentation of Mechanical Device: Graduated compression elastic hosiery Consult Discharge Plan - Plan Referrals: Sweta Peguero CNP [Partnered Physician] - Darren Virk Jr, MD [Primary Care Provider] - (SENT WEB REQUEST ON 10-29-16 @ [id number]) Morales Cunningham MD [Partnered Physician] - 11/27/16 1:15 pm Rush Leal MD [Partnered Physician] - 11/27/16 9:00 am (SENT WEB REQUEST ON 10-29-16 @ 1409 PATIENT HAS A FOLLOW UP FOR [facility] ON 10-27-16 @ 0900 BUT IT IS 4 WEEKS OUT.)
[2016-10-31] MEDS: Multivit/Ca/Min/Fe/FA 1 TAB TABLET PO SCH (07:51)
[2016-10-31] MEDS: *HR* Metformin 500 MG TABLET PO SCH ×2 (07:51→16:04)
[2016-10-31] MEDS: *HR* GlipiZIDE XL (24 HR) 10 MG TABLET PO SCH (07:51)
[2016-10-31] MEDS: Furosemide 20 MG/2 ML VIAL IVP SCH ×2 (07:51→20:17)
[2016-10-31] MEDS: Aspirin Enteric Coated 81 MG Tablet PO SCH (07:51)
[2016-10-31] MEDS: Insulin LISPRO 300 UNITS/3 ML VIAL SQ SCH ×4 (07:52→20:20)
[2016-10-31] MEDS: *HR* Morphine 2 MG/ML SYRINGE IVP PRN ×2 (07:52→16:04)
[2016-10-31] MEDS: Chlorhexidine Rinse 15 ML MOUTHWASH MM SCH ×2 (07:52→20:19)
[2016-10-31] MEDS: Insulin DETEMIR 100 UNIT/ML X5UNITS SQ SCH (20:19)
[2016-11-01] MEDS: *HR* Morphine 2 MG/ML SYRINGE IVP PRN ×2 (00:07→12:31)
[2016-11-01] MEDS: *HR* Heparin 5,000 UNIT/ML VIAL SQ SCH ×2 (06:09→17:13)
[2016-11-01] MEDS: *HR* OxyCODONE/APAP 5/325 TABLET PO PRN ×2 (06:09→22:57)
[2016-11-01] MEDS: *HR* Metformin 500 MG TABLET PO SCH ×2 (08:12→17:13)
[2016-11-01] MEDS: Furosemide 20 MG/2 ML VIAL IVP SCH ×2 (08:12→20:11)
[2016-11-01] MEDS: Aspirin Enteric Coated 81 MG Tablet PO SCH (08:13)
[2016-11-01] MEDS: *HR* GlipiZIDE XL (24 HR) 10 MG TABLET PO SCH (08:13)
[2016-11-01] MEDS: Chlorhexidine Rinse 15 ML MOUTHWASH MM SCH ×2 (08:13→20:11)
[2016-11-01] MEDS: Multivit/Ca/Min/Fe/FA 1 TAB TABLET PO SCH (08:13)
[2016-11-01] MEDS: Insulin LISPRO 300 UNITS/3 ML VIAL SQ SCH ×4 (08:13→20:13)
--- NOTE | 2016-11-01 08:35 | Cardiothoracic Progress Note ---
Date of Encounter: 11/01/16 Time of Encounter: 08:34 - Assessment and plan (1) Coronary artery disease Current Visit: No Status: Acute The patient is recovering well from his CABG3. His activity is increasing slowly, and he was able to ambulate from yesterday. Physical therapy will continue working with the patient to increase range of motion and strength. The patient will require ECF placement as a bridge to home upon discharge. The assessment and plan as outlined above was discussed with the patient and/or family members who expressed understanding and agreement. All questions were answered. Qualifiers: Coronary Disease-Associated Artery/Lesion type: [place] artery [place] vs. transplanted heart: [place] heart Associated angina: with stable angina Qualified Code(s): I25.118 - Atherosclerotic heart disease of [place] coronary artery with other forms of angina pectoris - Subjective Procedure(s) Performed: POD#5 S/P CABG3 Interval history: The patient is resting comfortably in his hospital bed. He was able to sit in a chair and ambulate in his room yesterday. Vital Signs, Last 4 Hours Temp Pulse Resp BP Pulse Ox 11/01/16 06:53 98.3 F 93 19 134/80 95 Oxgyen Flow Rate Oxygen Flow Rate (LPM) 3 Weight 10/30/16 10/31/16 11/01/16 23:59 23:59 23:59 Weight 143.8 kg 144.4 kg - Physical Examination General: Conversant, No Apparent Distress Neck: No JVD, Normal carotid pulses Cardiac: Reg Rate and Rhythm, Normal S1 and S2, No Murmur Incision: No signs of infection, Dry/intact dressing Sternum: Stable Lungs: Normal Breath Sounds, No Wheeze, Rales, Rhonchi Neuro: Alert and responsive, No focal deficits noted Vascular: Normal capillary refill Musculoskeletal: No Chest Wall Tenderness Extremities: No Clubbing, No Cyanosis, No Edema - Labs 10/30/16 04:20 10/30/16 04:20 - VTE Documentation of Mechanical Device: Graduated compression elastic hosiery Consult Discharge Plan - Plan Referrals: Sweta Peguero CNP [Partnered Physician] - Darren Virk Jr, MD [Primary Care Provider] - (SENT WEB REQUEST ON 10-29-16 @ [phone]) Morales Cunningham MD [Partnered Physician] - 11/27/16 1:15 pm Rush Leal MD [Partnered Physician] - 11/27/16 9:00 am (SENT WEB REQUEST ON 10-29-16 @ [phone] PATIENT HAS A FOLLOW UP FOR [facility] ON 10-27-16 @ 0900 BUT IT IS 4 WEEKS OUT.)
[2016-11-01] MEDS: Insulin DETEMIR 100 UNIT/ML X5UNITS SQ SCH (20:18)
[2016-11-02] MEDS: *HR* Heparin 5,000 UNIT/ML VIAL SQ SCH ×2 (05:06→17:15)
[2016-11-02] MEDS: *HR* GlipiZIDE XL (24 HR) 10 MG TABLET PO SCH (08:15)
[2016-11-02] MEDS: Insulin LISPRO 300 UNITS/3 ML VIAL SQ SCH ×4 (08:15→21:33)
[2016-11-02] MEDS: Aspirin Enteric Coated 81 MG Tablet PO SCH (08:15)
[2016-11-02] MEDS: Furosemide 20 MG/2 ML VIAL IVP SCH ×2 (08:16→20:02)
[2016-11-02] MEDS: *HR* Metformin 500 MG TABLET PO SCH ×2 (08:16→17:15)
[2016-11-02] MEDS: *HR* OxyCODONE/APAP 5/325 TABLET PO PRN ×2 (08:16→21:33)
[2016-11-02] MEDS: Chlorhexidine Rinse 15 ML MOUTHWASH MM SCH ×2 (08:16→20:02)
[2016-11-02] MEDS: Multivit/Ca/Min/Fe/FA 1 TAB TABLET PO SCH (08:16)
[2016-11-02] MEDS: *HR* Morphine 2 MG/ML SYRINGE IVP PRN ×3 (08:47→20:02)
--- NOTE | 2016-11-02 11:47 | Cardiothoracic Progress Note ---
Date of Encounter: 11/02/16 Time of Encounter: 11:46 - Assessment and plan (1) Coronary artery disease Current Visit: No Status: Acute The patient is recovering well from his CABG3. His activity is increasing slowly, and he was able to ambulate from yesterday. Physical therapy will continue working with the patient to increase range of motion and strength. The patient will require ECF placement as a bridge to home upon discharge. The assessment and plan as outlined above was discussed with the patient and/or family members who expressed understanding and agreement. All questions were answered. Qualifiers: Coronary Disease-Associated Artery/Lesion type: [place] artery [place] vs. transplanted heart: [place] heart Associated angina: with stable angina Qualified Code(s): I25.118 - Atherosclerotic heart disease of [place] coronary artery with other forms of angina pectoris - Subjective Procedure(s) Performed: POD#6 S/P CABG3 Interval history: The patient is resting comfortably in his hospital bed. He was able to sit in a chair and ambulate in his room yesterday. Vital Signs, Last 4 Hours Pulse 11/02/16 08:45 89 Oxgyen Flow Rate Oxygen Flow Rate (LPM) 2 Weight 10/31/16 11/01/16 11/02/16 23:59 23:59 23:59 Weight 144.4 kg 144.4 kg - Physical Examination General: Conversant, No Apparent Distress Neck: No JVD, Normal carotid pulses Cardiac: Reg Rate and Rhythm, Normal S1 and S2, No Murmur Incision: No signs of infection, Dry/intact dressing Sternum: Stable Lungs: Normal Breath Sounds, No Wheeze, Rales, Rhonchi Neuro: Alert and responsive, No focal deficits noted Vascular: Normal capillary refill Musculoskeletal: No Chest Wall Tenderness Extremities: No Clubbing, No Cyanosis, No Edema - Labs 10/30/16 04:20 10/30/16 04:20 - VTE Documentation of Mechanical Device: Graduated compression elastic hosiery Consult Discharge Plan - Plan Referrals: Sweta Peguero CNP [Partnered Physician] - Darren Virk Jr, MD [Primary Care Provider] - (SENT WEB REQUEST ON 10-29-16 @ [phone]) Morales Cunningham MD [Partnered Physician] - 11/27/16 1:15 pm Rush Leal MD [Partnered Physician] - 11/27/16 9:00 am (SENT WEB REQUEST ON 10-29-16 @ [phone] PATIENT HAS A FOLLOW UP FOR [facility] ON 10-27-16 @ 0900 BUT IT IS 4 WEEKS OUT.)
[2016-11-02] MEDS: Insulin DETEMIR 100 UNIT/ML X5UNITS SQ SCH (21:33)
[2016-11-03] MEDS: *HR* OxyCODONE/APAP 5/325 TABLET PO PRN ×3 (04:30→23:22)
[2016-11-03] MEDS: *HR* Heparin 5,000 UNIT/ML VIAL SQ SCH ×2 (06:40→18:07)
--- NOTE | 2016-11-03 07:20 | Cardiothoracic Progress Note ---
Date of Encounter: 11/03/16 Time of Encounter: 07:18 - Assessment and plan (1) Coronary artery disease Current Visit: No Status: Acute The patient is recovering well from his CABG3. His activity is increasing slowly, and he was able to ambulate from yesterday. Physical therapy will continue working with the patient to increase range of motion and strength. Though the patient's sternum is stable to both deep breathing and coughing, he has complained of some increasing pain in this region. A chest x-ray will be performed this morning to assess the sternum. The patient will require ECF placement as a bridge to home upon discharge. The assessment and plan as outlined above was discussed with the patient and/or family members who expressed understanding and agreement. All questions were answered. Qualifiers: Coronary Disease-Associated Artery/Lesion type: [place] artery [place] vs. transplanted heart: [place] heart Associated angina: with stable angina Qualified Code(s): I25.118 - Atherosclerotic heart disease of [place] coronary artery with other forms of angina pectoris - Subjective Procedure(s) Performed: POD#7 S/P CABG3 Interval history: The patient is resting comfortably in his hospital bed. He was able to sit in a chair and ambulate in the hallway yesterday. He complains of some movement in the lower portion of his sternum. Vital Signs, Last 4 Hours Temp Pulse Resp BP Pulse Ox 11/03/16 07:10 98.6 F 81 20 123/67 11/03/16 04:31 97.3 F L 88 22 120/70 96 11/03/16 04:30 84 Oxgyen Flow Rate Oxygen Flow Rate (LPM) 0 Weight 11/01/16 11/02/16 11/03/16 23:59 23:59 23:59 Weight 144.4 kg 144.4 kg 143.4 kg - Physical Examination General: Conversant, No Apparent Distress Neck: No JVD, Normal carotid pulses Cardiac: Reg Rate and Rhythm, Normal S1 and S2, No Murmur Incision: No signs of infection, Dry/intact dressing Sternum: Stable Lungs: Normal Breath Sounds, No Wheeze, Rales, Rhonchi Neuro: Alert and responsive, No focal deficits noted Vascular: Normal capillary refill Extremities: No Clubbing, No Cyanosis, No Edema - Labs 10/30/16 04:20 10/30/16 04:20 - VTE Documentation of Mechanical Device: Graduated compression elastic hosiery Consult Discharge Plan - Plan Referrals: Sweta Peguero CNP [Partnered Physician] - Darren Virk Jr, MD [Primary Care Provider] - (SENT WEB REQUEST ON 10-29-16 @ [id number]) Morales Cunningham MD [Partnered Physician] - 11/27/16 1:15 pm Rush Leal MD [Partnered Physician] - 11/27/16 9:00 am (SENT WEB REQUEST ON 10-29-16 @ 0968 PATIENT HAS A FOLLOW UP FOR [facility] ON 10-27-16 @ 0900 BUT IT IS 4 WEEKS OUT.)
[2016-11-03] MEDS: Chlorhexidine Rinse 15 ML MOUTHWASH MM SCH ×2 (08:13→20:31)
[2016-11-03] MEDS: *HR* Metformin 500 MG TABLET PO SCH ×2 (08:13→16:48)
[2016-11-03] MEDS: *HR* GlipiZIDE XL (24 HR) 10 MG TABLET PO SCH (08:14)
[2016-11-03] MEDS: Multivit/Ca/Min/Fe/FA 1 TAB TABLET PO SCH (08:14)
[2016-11-03] MEDS: Aspirin Enteric Coated 81 MG Tablet PO SCH (08:14)
[2016-11-03] MEDS: Furosemide 20 MG/2 ML VIAL IVP SCH ×2 (08:16→20:31)
[2016-11-03] MEDS: Insulin LISPRO 300 UNITS/3 ML VIAL SQ SCH ×4 (08:21→20:57)
[2016-11-03] MEDS: Insulin DETEMIR 100 UNIT/ML X5UNITS SQ SCH (20:57)
[2016-11-04] MEDS: *HR* OxyCODONE/APAP 5/325 TABLET PO PRN ×2 (04:12→08:52)
[2016-11-04] MEDS: *HR* Heparin 5,000 UNIT/ML VIAL SQ SCH (05:38)
--- NOTE | 2016-11-04 07:10 | Discharge Summary ---
Date of Encounter: 11/04/16 Time of Encounter: 07:06 - Discharge Diagnosis (1) Coronary artery disease Priority: Primary Status: Acute Qualifiers: Coronary Disease-Associated Artery/Lesion type: [place] artery [place] vs. transplanted heart: [place] heart Associated angina: with stable angina Qualified Code(s): I25.118 - Atherosclerotic heart disease of [place] coronary artery with other forms of angina pectoris - Discharge Medications Prescriptions: OxyCODONE/APAP 5/325 [Percocet 5/325 MG] 1 each PO Q4HR PRN #50 tablet PRN Reason: Severe Pain Metoprolol [Lopressor] 50 mg PO BID #60 tablet Home Medications: Insulin Glargine,Hum.rec.anlog [Lantus Solostar] 48 units SQ HS 09/03/15 [ History] Metformin [Glucophage] 1,000 mg PO BIDWM 09/03/15 [History] Pravastatin Sodium [Pravachol] 40 mg PO DAILY 09/03/15 [History] Multivitamin [Multivitamins] 1 each PO DAILY 10/22/16 [History] GlipiZIDE [Glipizide] 10 mg PO DAILY 10/27/16 [History] Losartan Potassium [Cozaar] 50 mg PO DAILY 10/27/16 [History] Aspirin Enteric Coated [Aspirin EC] 81 mg PO DAILY tablet. 11/04/16 [Rx] Metoprolol [Lopressor] 50 mg PO BID #60 tablet 11/04/16 [Rx] OxyCODONE/APAP 5/325 [Percocet 5/325 MG] 1 each PO Q4HR PRN #50 tablet 11/04/16 [Rx] Allergies/Adverse Reactions: Allergies No Known Allergies Allergy (Verified 10/27/16 07:16) Procedures/tests Complete & Pending: Procedures Performed prior 72 hours Category Date Time Status CT chest w con [CT] Routine Cat Scan 11/03/16 14:40 Draft Date of admission: 10/27/16 09:58 Primary care physician: Darren Virk Jr, MD Consults: 10/27/16 12:41 Consult to Cardiac Rehabilitation-Phase1 [CONS] Routine Comment: Reason for Consult: Post open heart Call Completed: Yes Consult to Kitchen Cleaner [CONS] Routine Reason for SW Consult: open heart 10/28/16 16:23 Consult to Physical Therapy [CONS] Routine Comment: Evaluate, develop and implement POC OT [Consult to Occupational Therapy] [CONS] Routine Comment: Evaluate, develop and implement POC 10/29/16 10:25 Consult for Pharmacy Education [CONS] Routine Reason for Consult: Post-Op Heart Call Completed: Yes Consult to Occupational Therapy [CONS] Routine Comment: Evaluate, develop and implement POC Consult to Physical Therapy [CONS] Routine Comment: Evaluate, develop and implement POC Procedure(s) Performed: 1. CABG 3 (ANGEL to LAD, SVG to OM1, SVG to PLB) performed October 27, 2016. 2. Endoscopic vein harvesting, greater saphenous vein from right lower extremity performed October 27, 2016. Discharging clinician: Leo Anton Anticipated date of discharge: 11/04/16 - Patient Status Disposition: Home, Self-Care Condition: Good Functional capacity at discharge: uses cane/walker Overall status at discharge: patient is progressing back to baseline - Discharge Instructions Follow Up With: Sweta Peguero CNP [Partnered Physician] - Darren Virk Jr, MD [Primary Care Provider] - (SENT WEB REQUEST ON 10-29-16 @ 0943) Morales Cunningham MD [Partnered Physician] - 11/27/16 1:15 pm Rush Leal MD [Partnered Physician] - 11/27/16 9:00 am (SENT WEB REQUEST ON 10-29-16 @ 0915 PATIENT HAS A FOLLOW UP FOR [facility] ON 10-27-16 @ 0900 BUT IT IS 4 WEEKS OUT.) - Diet and Activity Activity: sternal precautions, no driving for four weeks, no lifting greater than 10 pounds for eight weeks Diet: diabetic diet - Hospital Course Hospital course: Mr. Llamas is a 56 year old type II diabetic, hypertensive, morbidly obese man with severe peripheral vascular disease. The patient underwent cardiac catheterization and was found to have severe three-vessel CAD was recommended to for CABG. The patient underwent CABG 3 on October 27, 2016. The patient was transferred to the ICU postoperatively remained hemodynamically stable. The patient was extubated and transferred to the telemetry unit. 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 The patient was discharged to an ECF on POD #8 as a bridge to home. - Time Spent with Patient Total time spent providing and/or coordinating discharge services: Physical Examination Vital Signs, Last 4 Hours Temp Pulse Resp BP Pulse Ox 11/04/16 05:41 98.3 F 76 20 120/64 89 L 11/04/16 04:20 81 General: Conversant, No Apparent Distress Neck: No JVD, Normal carotid pulses Cardiac: Reg Rate and Rhythm, Normal S1 and S2, No Murmur Lungs: Normal Breath Sounds, No Wheeze, Rales, Rhonchi Neuro: Alert and responsive, No focal deficits noted Vascular: Normal capillary refill Extremities: No Clubbing, No Cyanosis, No Edema - VTE Documentation of Mechanical Device: Graduated compression elastic hosiery
--- NOTE | 2016-11-04 07:18 | Physician Discharge Referral ---
ExtendedCare Referral Info Provider in Charge: Morales Cunningham M.D. Provider in Charge after Transfer: PCP Institutional Level of Care: Skilled - Diagnosis (1) Coronary artery disease Priority: Primary Status: Resolved Expected Duration of Placement: 2-3 weeks Prognosis: Good Aware of Diagnosis: Patient - Transfer Medications Prescriptions: OxyCODONE/APAP 5/325 [Percocet 5/325 MG] 1 each PO Q4HR PRN #50 tablet PRN Reason: Severe Pain Metoprolol [Lopressor] 50 mg PO BID #60 tablet Home Medications: Insulin Glargine,Hum.rec.anlog [Lantus Solostar] 48 units SQ HS 09/03/15 [ History] Metformin [Glucophage] 1,000 mg PO BIDWM 09/03/15 [History] Pravastatin Sodium [Pravachol] 40 mg PO DAILY 09/03/15 [History] Multivitamin [Multivitamins] 1 each PO DAILY 10/22/16 [History] GlipiZIDE [Glipizide] 10 mg PO DAILY 10/27/16 [History] Losartan Potassium [Cozaar] 50 mg PO DAILY 10/27/16 [History] Aspirin Enteric Coated [Aspirin EC] 81 mg PO DAILY tablet. 11/04/16 [Rx] Metoprolol [Lopressor] 50 mg PO BID #60 tablet 11/04/16 [Rx] OxyCODONE/APAP 5/325 [Percocet 5/325 MG] 1 each PO Q4HR PRN #50 tablet 11/04/16 [Rx] Allergies/Adverse Reactions: Allergies No Known Allergies Allergy (Verified 10/27/16 07:16) - Respiratory Orders Smoking Cessation: Smoking cessation has been advised. For more information, call the [place] Tobacco Quit Line at 6-796-AYIQ-NOW. - Ancillary Orders May use pressure relief devices daily prn, May go on [place] w/family/respon democrat w /meds at nurse discretion PRN - Advance Directives Code Status: Full Code - Mobility Orders Ambulate - Rehabiliation Orders Rehab Potential: Good Rehab Orders: Sternal Precautions, ROM Exercises, Evaluation for Physical Therapy, Evaluation for Occupational Therapy - Treatments Skin tear care topically daily PRN per policy, May check for fecal impaction rectally daily PRN, Fleet enema rectally every other day PRN cleansing purposes - Diet Orders Regular CERTIFICATION: I certify that the transfer of the above named patient to an Extended Care Facility is necessary for the continuing treatment of the diagnosis listed. The above information is true and accurate reflection of patient's current condition. Confidential - Redisclosure prohibited without a patient's written consent.
[2016-11-04 07:19] VITALS: BP 130/64
[2016-11-04] MEDS: Insulin LISPRO 300 UNITS/3 ML VIAL SQ SCH (08:05)
[2016-11-04] MEDS: *HR* Metformin 500 MG TABLET PO SCH (08:06)
[2016-11-04] MEDS: Aspirin Enteric Coated 81 MG Tablet PO SCH (08:09)
[2016-11-04] MEDS: Multivit/Ca/Min/Fe/FA 1 TAB TABLET PO SCH (08:09)
[2016-11-04] MEDS: *HR* GlipiZIDE XL (24 HR) 10 MG TABLET PO SCH (08:10)
[2016-11-04] MEDS: Furosemide 20 MG/2 ML VIAL IVP SCH (08:11)
[2016-11-04] MEDS: Chlorhexidine Rinse 15 ML MOUTHWASH MM SCH (08:11)
== END 2016-11-04 08:55 | disposition home or self-care (01) | DRG 236 ==
LOC: SAMDAY 06:13 → ICNU 09:58 → 2NNU 10-29 10:09
PROVIDERS: ADMIT Thoracic Surgery (Cardiothoracic Vascular Surgery); ATTEND Thoracic Surgery (Cardiothoracic Vascular Surgery)

== ENCOUNTER 2019-09-07 12:13 | Observation (INO) ==
[2019-09-07] MEDS ORDERED: Ipratropium/Albuterol Neb 3 ML IH ONE (12:24)
[2019-09-07] MEDS ORDERED: Ipratropium/Albuterol Neb 3 ML ONE (12:27)
[2019-09-07 13:14] LABS: Basophils % 0.2 %; Eosinophils % 0.3 %; Hematocrit 34.4 % (37.5-50.1); Hemoglobin 11.9 g/dL (12.9-16.9); Immature Granulocytes % 1.3 % (0-4); Lymphocytes # 4.9 K/mcL (0.6-4.6); Lymphocytes % 47.1 %; Mean Corpuscular HGB Conc 34.6 g/dL (31.6-35.5); Mean Corpuscular Volume 86.6 fL (83.0-100.0); Mean Platelet Volume 9.1 fL (9.4-12.4); Monocytes # 1.2 K/mcL (0.0-1.3); Monocytes % 11.9 %; Neutrophils # 4.1 K/mcL (1.6-8.9); Platelet Count 214 K/mcL (140-400); Red Blood Count 3.97 M/mcL (4.19-5.50); Red Cell Distribution Width 14.1 % (11.5-14.5); Segmented Neutrophils % 39.2 %; White Blood Count 10.4 K/mcL (4.3-11.1)
[2019-09-07 13:45] LABS: Calcium 9.8 mg/dL (8.6-10.3); Potassium 3.8 mEq/L (3.5-5.1); Troponin I 0.03 ng/mL (< 0.04)
[2019-09-07] MEDS ORDERED: Isovue-370 500 ML BOTTLE IVP ONE (13:58)
[2019-09-07] MEDS ORDERED: 0.9 % Sodium Chloride 1,000 ML IVC ONE (14:16)
[2019-09-07] MEDS: 0.9 % Sodium Chloride 1,000 ML IVC SCH (18:28)
[2019-09-07] MEDS: Ipratropium/Albuterol Neb 3 ML IH SCH (19:44)
[2019-09-07] MEDS: Insulin LISPRO 300 UNITS/3 ML VIAL SQ SCH (20:52)
[2019-09-07] MEDS: *HR* Heparin 5,000 UNIT/ML VIAL SQ SCH (20:55)
[2019-09-07] MEDS: Insulin DETEMIR 100 UNIT/ML X5UNITS SQ SCH (20:56)
[2019-09-08] MEDS: Ipratropium/Albuterol Neb 3 ML IH SCH ×8 (00:09→23:29)
[2019-09-08 04:12] LABS: Bilirubin,Urine Negative (Negative); Blood,Urine Negative (Negative); Clarity,Urine Clear (Clear); Color,Urine Yellow (Yellow); Glucose,Urine (UA) 250 mg/dL (Normal); Ketones,Urine Negative (Negative); Leukocyte Esterase,Urine Negative (Negative); Nitrite,Urine Negative (Negative); PH,Urine 5.5 pH Units (5.0-8.0); Protein,Urine >=300 mg/dL (Neg-Trace); Specific Gravity,Urine 1.028 (1.010-1.025); Urobilinogen,Urine Normal (Normal)
[2019-09-08 04:15] LABS: Bacteria,Urine None Seen per hpf (None-Few); Hyaline Casts,Urine Few per lpf (None-Few); Squamous Epithelial Cell,Urine Many per lpf (None-Few); WBC,Urine 0-3 per hpf (0-3)
[2019-09-08 04:22] LABS: Basophils % 0.1 %; Eosinophils % 0.3 %; Hematocrit 30.8 % (37.5-50.1); Immature Granulocytes % 1.5 % (0-4); Lymphocytes # 1.8 K/mcL (0.6-4.6); Lymphocytes % 24.2 %; Mean Corpuscular HGB Conc 32.5 g/dL (31.6-35.5); Mean Corpuscular Hemoglobin 29.2 pg (28.0-33.3); Mean Corpuscular Volume 90.1 fL (83.0-100.0); Mean Platelet Volume 9.1 fL (9.4-12.4); Monocytes # 0.9 K/mcL (0.0-1.3); Monocytes % 12.6 %; Neutrophils # 4.4 K/mcL (1.6-8.9); Platelet Count 179 K/mcL (140-400); Red Blood Count 3.42 M/mcL (4.19-5.50); Red Cell Distribution Width 14.4 % (11.5-14.5); Segmented Neutrophils % 61.3 %; White Blood Count 7.2 K/mcL (4.3-11.1)
[2019-09-08 04:42] LABS: Albumin/Globulin Ratio 0.9 (1.1-2.2); Bilirubin,Total 0.3 mg/dL (0.3-1.0); Calcium 8.8 mg/dL (8.6-10.3); Globulin 3.3 g/dL (2.4-3.5); Potassium 4.1 mEq/L (3.5-5.1); Total Protein 6.3 g/dL (6.4-8.9)
[2019-09-08] MEDS ORDERED: 0.9 % Sodium Chloride 500 ML IVC ONE ×2 (05:47→07:33)
[2019-09-08] MEDS: *HR* Heparin 5,000 UNIT/ML VIAL SQ SCH ×3 (06:08→21:42)
[2019-09-08] MEDS: 0.9 % Sodium Chloride 1,000 ML IVC SCH (07:12)
[2019-09-08] MEDS ORDERED: Albuterol 2.5 MG/3 ML NEBULIZER IH PRN (07:36)
[2019-09-08] MEDS ORDERED: 0.9 % Sodium Chloride 1,000 ML IVC SCH (07:45)
[2019-09-08] MEDS ORDERED: Dextrose Gel 15 GM/37.5 ML TUBE PO PRN ×2 (07:50)
[2019-09-08] MEDS ORDERED: D5% in Water 1,000 ML IVC PRN (07:50)
[2019-09-08] MEDS ORDERED: *HR* Dextrose 50 % in Water (Syg) 50 ML SYRINGE IVP PRN (07:50)
[2019-09-08] MEDS: Insulin LISPRO 300 UNITS/3 ML VIAL SQ SCH ×4 (08:01→17:28)
[2019-09-08] MEDS: Insulin DETEMIR 100 UNIT/ML X5UNITS SQ SCH ×2 (08:07→21:42)
[2019-09-08 09:19] LABS: Estimated Average Glucose 283 mg/dl
[2019-09-08] MEDS: predniSONE 20 MG TABLET PO SCH (13:11)
[2019-09-08] MEDS: Azithromycin 250 MG TABLET PO SCH (13:11)
[2019-09-08 13:56] LABS: ABG Base Excess -1 mEq/L (-2 to 3); ABG HCO3 24 mEq/L (21-27); ABG Oxygen Saturation 97 % (95-98); ABG PCO2 39 mmHg (35-45); ABG PH 7.39 pH Units (7.32-7.45); ABG PO2 88 mmHg (85-104); ABG TCO2 25 mEq/L (20-26)
[2019-09-08] MEDS: Leptospermum Honey Gel 44 ML TUBE TP SCH (17:28)
[2019-09-08] MEDS ORDERED: Insulin LISPRO 300 UNITS/3 ML VIAL SQ SCH (21:00)
[2019-09-08] MEDS ORDERED: Perflutren Lipid Microsphere 1.3 ML in 0.9 % Sodium Chloride 8.7 ML IVP ONE (21:09)
[2019-09-09] MEDS: Ipratropium/Albuterol Neb 3 ML IH SCH ×6 (03:35→23:12)
[2019-09-09 05:48] LABS: Mean Corpuscular HGB Conc 32.3 g/dL (31.6-35.5); Mean Corpuscular Hemoglobin 29.3 pg (28.0-33.3); Mean Corpuscular Volume 90.9 fL (83.0-100.0); Mean Platelet Volume 9.6 fL (9.4-12.4); Platelet Count 176 K/mcL (140-400); Red Blood Count 3.41 M/mcL (4.19-5.50); Red Cell Distribution Width 14.2 % (11.5-14.5); White Blood Count 5.8 K/mcL (4.3-11.1)
[2019-09-09 06:07] LABS: Calcium 8.5 mg/dL (8.6-10.3); Potassium 4.5 mEq/L (3.5-5.1)
[2019-09-09] MEDS: *HR* Heparin 5,000 UNIT/ML VIAL SQ SCH ×3 (06:33→20:18)
[2019-09-09] MEDS: Azithromycin 250 MG TABLET PO SCH (07:35)
[2019-09-09] MEDS: predniSONE 20 MG TABLET PO SCH (07:35)
[2019-09-09] MEDS: Insulin LISPRO 300 UNITS/3 ML VIAL SQ SCH ×5 (07:36→17:06)
[2019-09-09] MEDS: Insulin DETEMIR 100 UNIT/ML X5UNITS SQ SCH (07:36)
[2019-09-09] MEDS ORDERED: Insulin LISPRO 300 UNITS/3 ML VIAL SQ SCH ×3 (08:39→17:00)
[2019-09-09] MEDS ORDERED: Insulin DETEMIR 100 UNIT/ML X5UNITS SQ SCH ×5 (09:00→21:00)
[2019-09-09] MEDS ORDERED: Insulin DETEMIR 100 UNIT/ML X5UNITS SQ ONE ×3 (09:09→10:13)
[2019-09-09] MEDS: Leptospermum Honey Gel 44 ML TUBE TP SCH (09:59)
[2019-09-09] MEDS ORDERED: 0.9 % Sodium Chloride 500 ML IVC ONE (14:25)
[2019-09-09] MEDS ORDERED: Insulin Human Regular 10 UNIT in 0.9 % Sodium Chloride 10 ML IV ONE ×2 (15:56→18:45)
[2019-09-09 16:21] LABS: Calcium 8.5 mg/dL (8.6-10.3); Potassium 5.7 mEq/L (3.5-5.1)
[2019-09-09] MEDS ORDERED: 0.9 % Sodium Chloride 1,000 ML IVC ONE (16:29)
[2019-09-09 16:57] LABS: ABG Base Excess -1 mEq/L (-2 to 3); ABG HCO3 24 mEq/L (21-27); ABG Oxygen Saturation 95 % (95-98); ABG PCO2 37 mmHg (35-45); ABG PH 7.41 pH Units (7.32-7.45); ABG PO2 75 mmHg (85-104); ABG TCO2 25 mEq/L (20-26)
[2019-09-09] MEDS ORDERED: *HR* Dextrose 50 % in Water (Syg) 50 ML SYRINGE IVP PRN (18:53)
[2019-09-09] MEDS ORDERED: Insulin Human Regular 100 UNIT in 0.9 % Sodium Chloride 100 ML IVC SCH (19:00)
[2019-09-09 19:41] LABS: Calcium 8.6 mg/dL (8.6-10.3); Potassium 4.4 mEq/L (3.5-5.1)
[2019-09-10] MEDS: Ipratropium/Albuterol Neb 3 ML IH SCH ×4 (03:53→16:14)
[2019-09-10 04:02] LABS: Hematocrit 29.2 % (37.5-50.1); Hemoglobin 9.9 g/dL (12.9-16.9); Mean Corpuscular HGB Conc 33.9 g/dL (31.6-35.5); Mean Corpuscular Hemoglobin 29.5 pg (28.0-33.3); Mean Corpuscular Volume 86.9 fL (83.0-100.0); Mean Platelet Volume 9.2 fL (9.4-12.4); Platelet Count 209 K/mcL (140-400); Red Blood Count 3.36 M/mcL (4.19-5.50); Red Cell Distribution Width 14.3 % (11.5-14.5); White Blood Count 8.4 K/mcL (4.3-11.1)
[2019-09-10 04:21] LABS: Calcium 8.3 mg/dL (8.6-10.3); Potassium 3.5 mEq/L (3.5-5.1)
[2019-09-10] MEDS: *HR* Heparin 5,000 UNIT/ML VIAL SQ SCH ×2 (05:39→15:05)
[2019-09-10] MEDS ORDERED: Insulin LISPRO 300 UNITS/3 ML VIAL SQ SCH ×2 (06:00→12:00)
[2019-09-10] MEDS: Azithromycin 250 MG TABLET PO SCH (09:01)
[2019-09-10] MEDS: predniSONE 20 MG TABLET PO SCH (09:01)
[2019-09-10] MEDS: Insulin LISPRO 300 UNITS/3 ML VIAL SQ SCH ×2 (09:02→12:57)
[2019-09-10] MEDS ORDERED: Insulin DETEMIR 100 UNIT/ML X5UNITS SQ SCH (10:30)
[2019-09-10 12:01] VITALS: BP 179/75
[2019-09-10] MEDS ORDERED: Mag Hydrox/Al Hydrox/Simeth 30 ML UDC PO PRN (12:18)
[2019-09-10] MEDS ORDERED: Insulin Human Regular 15 UNIT in 0.9 % Sodium Chloride 10 ML IV ONE (13:59)
[2019-09-10] MEDS ORDERED: 0.9 % Sodium Chloride 500 ML IVC ONE (14:01)
[2019-09-10] MEDS ORDERED: Insulin Regular, Human 100 UNIT/ML SQ ONE (14:04)
== END 2019-09-10 16:27 | disposition home or self-care (01) ==
LOC: EMEROOARM 12:13 → 2ANU 12:13 → SUATTDRO 15:54 → 2ANU 16:20
PROVIDERS: ADMIT Student in an Organized Health Care Education/Training Program; ATTEND Family Medicine

== ENCOUNTER 2020-12-20 15:16 | Inpatient (IN) ==
[2020-12-20] MEDS ORDERED: *HR* Dextrose 50 % in Water (Vial) 50 ML VIAL IVP PRN (16:35)
[2020-12-20] MEDS ORDERED: Dextrose Gel 15 GM/37.5 ML TUBE PO PRN ×2 (16:35)
[2020-12-20] MEDS ORDERED: D5% in Water 1,000 ML IVC PRN (16:35)
[2020-12-20] MEDS ORDERED: Naloxone 0.4 MG/ML INJ IVP PRN (16:38)
[2020-12-20] MEDS ORDERED: Ondansetron 4 MG/2 ML VIAL IVP PRN (16:38)
[2020-12-20 17:15] LABS: Basophils % 0.2 %; Eosinophils % 0.2 %; Hemoglobin 9.6 g/dL (12.9-16.9); Immature Granulocytes % 1.8 % (0-4); Lymphocytes # 2.1 K/mcL (0.6-4.6); Lymphocytes % 23.6 %; Mean Corpuscular Hemoglobin 25.9 pg (28.0-33.3); Mean Corpuscular Volume 83.8 fL (83.0-100.0); Mean Platelet Volume 8.9 fL (9.4-12.4); Monocytes # 1.6 K/mcL (0.0-1.3); Monocytes % 17.3 %; Neutrophils # 5.1 K/mcL (1.6-8.9); Platelet Count 188 K/mcL (140-400); Red Cell Distribution Width 15.9 % (11.5-14.5); Segmented Neutrophils % 56.9 %
[2020-12-20 17:21] LABS: Prothrombin Time 11.2 Seconds (9.4-12.1)
[2020-12-20 17:29] LABS: Calcium 8.7 mg/dL (8.6-10.3); Potassium 4.3 mEq/L (3.5-5.1)
[2020-12-20] MEDS: Cefepime HCl 2,000 MG in Water for inj. (sterile) 20 ML IVP SCH (19:50)
[2020-12-20] MEDS: Vancomycin 2,000 MG/520 ML IV.SOLN IVPB SCH (19:51)
[2020-12-20] MEDS ORDERED: Insulin DETEMIR 100 UNIT/ML X5UNITS SUBQ SCH (21:00)
[2020-12-20] MEDS ORDERED: Insulin LISPRO 300 UNITS/3 ML VIAL SUBQ SCH (21:00)
[2020-12-20] MEDS: metroNIDAZOLE 500 MG TABLET PO SCH (21:07)
[2020-12-21] MEDS ORDERED: Cefepime HCl 2,000 MG in 0.9 % Sodium Chloride Mini Bag 100 ML IVPB SCH
[2020-12-21 01:06] LABS: Basophils % 0.1 %; Eosinophils % 0.1 %; Hematocrit 30.2 % (37.5-50.1); Hemoglobin 9.5 g/dL (12.9-16.9); Immature Granulocytes % 1.5 % (0-4); Lymphocytes # 1.8 K/mcL (0.6-4.6); Lymphocytes % 20.2 %; Mean Corpuscular HGB Conc 31.5 g/dL (31.6-35.5); Mean Corpuscular Hemoglobin 26.1 pg (28.0-33.3); Mean Platelet Volume 8.8 fL (9.4-12.4); Monocytes # 1.5 K/mcL (0.0-1.3); Monocytes % 16.9 %; Neutrophils # 5.5 K/mcL (1.6-8.9); Platelet Count 182 K/mcL (140-400); Red Blood Count 3.64 M/mcL (4.19-5.50); Red Cell Distribution Width 16.1 % (11.5-14.5); Segmented Neutrophils % 61.2 %; White Blood Count 8.9 K/mcL (4.3-11.1)
[2020-12-21 01:23] LABS: Calcium 8.1 mg/dL (8.6-10.3); Potassium 4.3 mEq/L (3.5-5.1)
[2020-12-21] MEDS: Cefepime HCl 2,000 MG in Water for inj. (sterile) 20 ML IVP SCH ×3 (03:14→17:46)
[2020-12-21] MEDS: Vancomycin 2,000 MG/520 ML IV.SOLN IVPB SCH ×2 (07:28→17:46)
[2020-12-21] MEDS: metroNIDAZOLE 500 MG TABLET PO SCH ×3 (08:17→20:46)
[2020-12-21] MEDS: Insulin LISPRO 300 UNITS/3 ML VIAL SUBQ SCH ×4 (08:29→20:47)
[2020-12-21] MEDS ORDERED: Aspirin Enteric Coated 81 MG Tablet PO SCH (09:00)
[2020-12-21 13:33] LABS: Adenovirus Not Detected (Not Detect); Bordetella Pertussis Not Detected (Not Detect); Chlamydophila pneumoniae Not Detected (Not Detect); Coronavirus 229E Not Detected (Not Detect); Coronavirus HKU1 Not Detected (Not Detect); Coronavirus NL63 Not Detected (Not Detect); Coronavirus OC43 Not Detected (Not Detect); Human Metapneumovirus Not Detected (Not Detect); Human Rhinovirus/Enterovirus Not Detected (Not Detect); Influenza A Subtype 2009 H1 Not Detected (Not Detect); Influenza B Not Detected (Not Detect); Mycoplasma pneumoniae Not Detected (Not Detect); Parainfluenza Virus 1 Not Detected (Not Detect); Parainfluenza Virus 2 Not Detected (Not Detect); Parainfluenza Virus 3 Not Detected (Not Detect); Parainfluenza Virus 4 Not Detected (Not Detect); Respiratory Syncytial Virus Not Detected (Not Detect); SARS-CoV-2 Not Detected (Not Detect)
[2020-12-21] MEDS ORDERED: *HR* FentaNYL (PF) 100 MCG/2 ML VIAL ONE (18:42)
[2020-12-21] MEDS ORDERED: *HR* Midazolam HCl 2 MG/2 ML VIAL ONE (18:42)
[2020-12-21] MEDS ORDERED: *HR* Propofol 200 MG/20 ML VIAL IVP ONE (18:42)
[2020-12-21] MEDS ORDERED: Lidocaine -MPF 2% 2 ML VIAL ONE (18:42)
[2020-12-21] MEDS ORDERED: Naloxone 0.4 MG/ML INJ IVP PRN (19:37)
[2020-12-21] MEDS ORDERED: Ondansetron 4 MG/2 ML VIAL IVP PRN (19:37)
[2020-12-21] MEDS ORDERED: Dextrose Gel 15 GM/37.5 ML TUBE PO PRN ×2 (19:37)
[2020-12-21] MEDS ORDERED: *HR* Dextrose 50 % in Water (Vial) 50 ML VIAL IVP PRN (19:37)
[2020-12-21] MEDS ORDERED: D5% in Water 1,000 ML IVC PRN (19:37)
[2020-12-21] MEDS: Insulin DETEMIR 100 UNIT/ML X5UNITS SUBQ SCH (20:48)
[2020-12-22] MEDS: Cefepime HCl 2,000 MG in Water for inj. (sterile) 20 ML IVP SCH ×3 (01:16→17:37)
[2020-12-22 06:55] LABS: Basophils % 0.3 %; Eosinophils % 0.5 %; Hematocrit 30.7 % (37.5-50.1); Hemoglobin 9.2 g/dL (12.9-16.9); Immature Granulocytes % 1.3 % (0-4); Lymphocytes % 25.9 %; Mean Corpuscular Hemoglobin 25.6 pg (28.0-33.3); Mean Corpuscular Volume 85.3 fL (83.0-100.0); Monocytes # 1.6 K/mcL (0.0-1.3); Monocytes % 20.7 %; Platelet Count 179 K/mcL (140-400); Red Cell Distribution Width 16.2 % (11.5-14.5); Segmented Neutrophils % 51.3 %; White Blood Count 7.8 K/mcL (4.3-11.1)
[2020-12-22 07:17] LABS: Calcium 8.1 mg/dL (8.6-10.3)
[2020-12-22] MEDS: Furosemide 40 MG TABLET PO SCH (07:40)
[2020-12-22] MEDS: allopurinoL 100 MG TABLET PO SCH (07:40)
[2020-12-22] MEDS: metroNIDAZOLE 500 MG TABLET PO SCH ×3 (07:40→21:00)
[2020-12-22] MEDS: Aspirin Enteric Coated 81 MG Tablet PO SCH (07:40)
[2020-12-22] MEDS: Insulin LISPRO 300 UNITS/3 ML VIAL SUBQ SCH ×4 (07:41→21:00)
[2020-12-22] MEDS: Vancomycin 2,000 MG/520 ML IV.SOLN IVPB SCH ×2 (07:43→18:08)
[2020-12-22] MEDS: *HR* Heparin 5,000 UNIT/ML VIAL SQ SCH ×2 (07:54→17:37)
[2020-12-22] MEDS ORDERED: allopurinoL 100 MG TABLET PO SCH (09:00)
[2020-12-22] MEDS ORDERED: Furosemide 40 MG TABLET PO SCH (09:00)
[2020-12-22] MEDS ORDERED: *HR* Metoprolol 5 MG/5 ML VIAL IVP PRN (16:40)
[2020-12-22] MEDS: Insulin DETEMIR 100 UNIT/ML X5UNITS SUBQ SCH (21:00)
[2020-12-22] MEDS: *HR* Labetalol 20 MG/4 ML SYRINGE IVP PRN (21:52)
[2020-12-23 01:38] LABS: Red Cell Distribution Width 15.9 % (11.5-14.5)
[2020-12-23 01:40] LABS: Basophils % 0.1 %; Eosinophils % 0.6 %; Hematocrit 31.8 % (37.5-50.1); Immature Granulocytes % 1.5 % (0-4); Immature Platelets 2.1 % (1.1-6.1); Lymphocytes # 1.7 K/mcL (0.6-4.6); Lymphocytes % 23.6 %; Mean Corpuscular HGB Conc 31.4 g/dL (31.6-35.5); Mean Corpuscular Hemoglobin 26.2 pg (28.0-33.3); Mean Corpuscular Volume 83.5 fL (83.0-100.0); Mean Platelet Volume 9.9 fL (9.4-12.4); Monocytes % 21.2 %; Neutrophils # 3.9 K/mcL (1.6-8.9); Platelet Count 201 K/mcL (140-400); Red Blood Count 3.81 M/mcL (4.19-5.50); White Blood Count 7.3 K/mcL (4.3-11.1)
[2020-12-23 01:56] LABS: Monocytes # 1.6 K/mcL (0.0-1.3)
[2020-12-23 01:57] LABS: Platelet Estimate Normal (Normal)
[2020-12-23 01:58] LABS: Potassium 4.1 mEq/L (3.5-5.1)
[2020-12-23] MEDS: Cefepime HCl 2,000 MG in Water for inj. (sterile) 20 ML IVP SCH ×3 (02:13→17:19)
[2020-12-23] MEDS: Vancomycin 2,000 MG/520 ML IV.SOLN IVPB SCH ×2 (06:34→20:08)
[2020-12-23] MEDS: *HR* Heparin 5,000 UNIT/ML VIAL SQ SCH (06:34)
[2020-12-23] MEDS: Insulin LISPRO 300 UNITS/3 ML VIAL SUBQ SCH ×4 (09:38→20:08)
[2020-12-23] MEDS: metroNIDAZOLE 500 MG TABLET PO SCH ×3 (09:39→20:07)
[2020-12-23] MEDS: allopurinoL 100 MG TABLET PO SCH (09:39)
[2020-12-23] MEDS: Furosemide 40 MG TABLET PO SCH (09:39)
[2020-12-23] MEDS: Aspirin Enteric Coated 81 MG Tablet PO SCH (09:39)
[2020-12-23 13:06] LABS: Influenza A PCR Negative (Negative); Influenza B PCR Negative (Negative); Resp. Syncytial Virus PCR Negative (Negative)
[2020-12-23 13:57] LABS: SARS-CoV-2 by PCR (In House) Negative (Negative)
[2020-12-23] MEDS: *HR* Labetalol 20 MG/4 ML SYRINGE IVP PRN (16:06)
[2020-12-23] MEDS ORDERED: Insulin DETEMIR 100 UNIT/ML X5UNITS SUBQ SCH (21:00)
[2020-12-24] MEDS: Cefepime HCl 2,000 MG in Water for inj. (sterile) 20 ML IVP SCH ×2 (01:53→08:02)
[2020-12-24 01:55] LABS: Basophils % 0.3 %; Eosinophils % 0.6 %; Hematocrit 31.9 % (37.5-50.1); Hemoglobin 10.1 g/dL (12.9-16.9); Immature Granulocytes % 1.6 % (0-4); Lymphocytes # 2.1 K/mcL (0.6-4.6); Mean Corpuscular HGB Conc 31.7 g/dL (31.6-35.5); Mean Corpuscular Hemoglobin 26.2 pg (28.0-33.3); Mean Corpuscular Volume 82.6 fL (83.0-100.0); Mean Platelet Volume 9.1 fL (9.4-12.4); Monocytes # 1.1 K/mcL (0.0-1.3); Monocytes % 16.5 %; Neutrophils # 3.3 K/mcL (1.6-8.9); Platelet Count 203 K/mcL (140-400); Red Blood Count 3.86 M/mcL (4.19-5.50); Red Cell Distribution Width 15.7 % (11.5-14.5); White Blood Count 6.7 K/mcL (4.3-11.1)
[2020-12-24 02:17] LABS: BUN/Creatinine Ratio 21 (6-26); Blood Urea Nitrogen 30 mg/dL (8-23); Calcium 8.3 mg/dL (8.6-10.3); Carbon Dioxide 23 mEq/L (23-29); Chloride 102 mEq/L (98-107); Glucose 298 mg/dL (70-105); Osmolality,Calculated 293 (280-300); Potassium 3.8 mEq/L (3.5-5.1); Sodium 133 mEq/L (136-145); eGFR For African Americans > 60 (> 60); eGFR For Non-African Americans 50 (> 60)
[2020-12-24] MEDS: Vancomycin 2,000 MG/520 ML IV.SOLN IVPB SCH (06:29)
[2020-12-24] MEDS: metroNIDAZOLE 500 MG TABLET PO SCH ×2 (08:03→15:13)
[2020-12-24] MEDS: Furosemide 40 MG TABLET PO SCH (08:03)
[2020-12-24] MEDS: Aspirin Enteric Coated 81 MG Tablet PO SCH (08:04)
[2020-12-24] MEDS: allopurinoL 100 MG TABLET PO SCH (08:04)
[2020-12-24] MEDS: Insulin LISPRO 300 UNITS/3 ML VIAL SUBQ SCH ×4 (08:05→20:35)
[2020-12-24] MEDS ORDERED: *HR* Midazolam HCl 2 MG/2 ML VIAL ONE (13:15)
[2020-12-24] MEDS ORDERED: *HR* FentaNYL (PF) 100 MCG/2 ML VIAL ONE ×2 (13:15→15:14)
[2020-12-24] MEDS ORDERED: Lidocaine HCL 4 ML Topical Solution (Laryng-O-Jet Kit Sterile Pak) TP ONE ×2 (13:15→13:21)
[2020-12-24] MEDS ORDERED: *HR* Propofol 200 MG/20 ML VIAL IVP ONE (13:15)
[2020-12-24] MEDS ORDERED: Ondansetron 4 MG/2 ML VIAL ONE (13:15)
[2020-12-24] MEDS ORDERED: *HR* Succinylcholine 200 MG/10 ML VIAL IVP ONE (13:21)
[2020-12-24] MEDS ORDERED: Ropivacaine/PF 0.5% 30 ML VIAL ONE (13:25)
[2020-12-24] MEDS ORDERED: ROPIVACAINE/PF/NS 0.25% 1 EACH SYRINGE INTRAART ONE (13:52)
[2020-12-24] MEDS ORDERED: *HR* HYDROMORPHONE 2 MG/ML VIAL ONE (15:15)
[2020-12-24] MEDS ORDERED: *HR* PHENYLEPHRINE 1,000 MCG/10 ML SYRINGE IVP ONE ×2 (15:23→16:05)
[2020-12-24] MEDS ORDERED: EPHEDrine 50 MG/ML VIAL ONE (15:35)
[2020-12-24] MEDS ORDERED: *HR* Labetalol 20 MG/4 ML SYRINGE IVP ONE (17:39)
[2020-12-24] MEDS ORDERED: *HR* Labetalol 20 MG/4 ML SYRINGE IVP PRN ×2 (17:40→18:33)
[2020-12-24] MEDS ORDERED: Ondansetron 4 MG/2 ML VIAL IVP ONE (17:50)
[2020-12-24] MEDS ORDERED: *HR* Dextrose 50 % in Water (Vial) 50 ML VIAL IVP PRN (18:33)
[2020-12-24] MEDS ORDERED: *HR* HYDROmorphone (PF) 1 MG/ML SYRINGE IVP PRN (18:33)
[2020-12-24] MEDS ORDERED: Naloxone 0.4 MG/ML INJ IVP PRN (18:33)
[2020-12-24] MEDS ORDERED: Ondansetron 4 MG/2 ML VIAL IVP PRN (18:33)
[2020-12-24] MEDS ORDERED: D5% in Water 1,000 ML IVC PRN (18:33)
[2020-12-24] MEDS ORDERED: Dextrose Gel 15 GM/37.5 ML TUBE PO PRN ×2 (18:33)
[2020-12-24] MEDS ORDERED: Vancomycin 2,000 MG/520 ML IV.SOLN IVPB SCH (21:00)
[2020-12-24] MEDS ORDERED: Insulin DETEMIR 100 UNIT/ML X5UNITS SUBQ SCH (21:00)
[2020-12-24] MEDS ORDERED: metroNIDAZOLE 500 MG TABLET PO SCH (21:00)
[2020-12-25] MEDS: Cefepime HCl 2,000 MG in Water for inj. (sterile) 20 ML IVP SCH ×4 (02:34→17:51)
[2020-12-25] MEDS: *HR* OxyCODONE/APAP 7.5/325 TABLET PO PRN ×4 (02:35→23:16)
[2020-12-25 05:24] LABS: Basophils % 0.3 %; Eosinophils % 0.3 %; Hematocrit 29.2 % (37.5-50.1); Hemoglobin 9.2 g/dL (12.9-16.9); Immature Granulocytes % 2.1 % (0-4); Lymphocytes # 1.7 K/mcL (0.6-4.6); Lymphocytes % 14.4 %; Mean Corpuscular HGB Conc 31.5 g/dL (31.6-35.5); Mean Corpuscular Hemoglobin 25.6 pg (28.0-33.3); Mean Corpuscular Volume 81.1 fL (83.0-100.0); Mean Platelet Volume 9.4 fL (9.4-12.4); Nucleated Red Blood Cells 0.2 /100 WBC (0); Platelet Count 164 K/mcL (140-400); Red Cell Distribution Width 15.8 % (11.5-14.5); Segmented Neutrophils % 65.9 %
[2020-12-25 05:25] LABS: Calcium 7.8 mg/dL (8.6-10.3); Neutrophils # 7.6 K/mcL (1.6-8.9); Potassium 4.6 mEq/L (3.5-5.1); White Blood Count 11.6 K/mcL (4.3-11.1)
[2020-12-25] MEDS ORDERED: *HR* Heparin 5,000 UNIT/ML VIAL SQ SCH (06:00)
[2020-12-25] MEDS ORDERED: Furosemide 40 MG TABLET PO SCH (09:00)
[2020-12-25] MEDS: Aspirin Enteric Coated 81 MG Tablet PO SCH (09:07)
[2020-12-25] MEDS: allopurinoL 100 MG TABLET PO SCH (09:09)
[2020-12-25] MEDS: metroNIDAZOLE 500 MG TABLET PO SCH ×3 (09:09→22:39)
[2020-12-25] MEDS: Insulin LISPRO 300 UNITS/3 ML VIAL SUBQ SCH ×4 (09:17→22:43)
[2020-12-25] MEDS: Insulin DETEMIR 100 UNIT/ML X5UNITS SUBQ SCH (22:39)
[2020-12-25] MEDS: tiZANidine 4 MG TABLET PO PRN (23:16)
[2020-12-26 02:13] LABS: Basophils % 0.1 %; Eosinophils % 0.3 %; Hematocrit 25.9 % (37.5-50.1); Hemoglobin 8.1 g/dL (12.9-16.9); Immature Granulocytes % 1.9 % (0-4); Lymphocytes # 2.1 K/mcL (0.6-4.6); Lymphocytes % 13.6 %; Mean Corpuscular HGB Conc 31.3 g/dL (31.6-35.5); Mean Corpuscular Hemoglobin 26.5 pg (28.0-33.3); Mean Corpuscular Volume 84.6 fL (83.0-100.0); Mean Platelet Volume 9.1 fL (9.4-12.4); Monocytes # 3.2 K/mcL (0.0-1.3); Monocytes % 20.7 %; Neutrophils # 9.9 K/mcL (1.6-8.9); Platelet Count 183 K/mcL (140-400); Red Blood Count 3.06 M/mcL (4.19-5.50); Red Cell Distribution Width 16.4 % (11.5-14.5); Segmented Neutrophils % 63.4 %; White Blood Count 15.6 K/mcL (4.3-11.1)
[2020-12-26 02:14] LABS: Eosinophils # 0.1 K/mcL (0.0-0.6)
[2020-12-26 02:29] LABS: Calcium 7.8 mg/dL (8.6-10.3); Potassium 3.9 mEq/L (3.5-5.1)
[2020-12-26 02:38] LABS: Platelet Estimate Normal (Normal)
[2020-12-26] MEDS: Aspirin Enteric Coated 81 MG Tablet PO SCH (09:59)
[2020-12-26] MEDS: Furosemide 40 MG TABLET PO SCH (09:59)
[2020-12-26] MEDS: tiZANidine 4 MG TABLET PO PRN ×2 (09:59→18:04)
[2020-12-26] MEDS: *HR* OxyCODONE/APAP 7.5/325 TABLET PO PRN ×2 (10:00→18:04)
[2020-12-26] MEDS: allopurinoL 100 MG TABLET PO SCH (10:01)
[2020-12-26] MEDS: Insulin LISPRO 300 UNITS/3 ML VIAL SUBQ SCH ×4 (10:02→21:51)
[2020-12-26] MEDS: Insulin NPH/REG 70/30 100 UNIT/ML (x5UNIT) SUBQ SCH ×3 (11:04→17:42)
[2020-12-26] MEDS: Insulin DETEMIR 100 UNIT/ML X5UNITS SUBQ SCH (21:00)
[2020-12-27] MEDS: *HR* OxyCODONE/APAP 7.5/325 TABLET PO PRN ×2 (00:32→23:19)
[2020-12-27 05:30] LABS: Basophils % 0.2 %; Eosinophils # 0.1 K/mcL (0.0-0.6); Eosinophils % 0.5 %; Hematocrit 26.1 % (37.5-50.1); Hemoglobin 7.9 g/dL (12.9-16.9); Immature Granulocytes % 3.6 % (0-4); Lymphocytes # 2.5 K/mcL (0.6-4.6); Lymphocytes % 22.5 %; Mean Corpuscular HGB Conc 30.3 g/dL (31.6-35.5); Mean Corpuscular Hemoglobin 25.6 pg (28.0-33.3); Mean Corpuscular Volume 84.7 fL (83.0-100.0); Mean Platelet Volume 8.9 fL (9.4-12.4); Monocytes # 1.9 K/mcL (0.0-1.3); Monocytes % 17.4 %; Neutrophils # 6.2 K/mcL (1.6-8.9); Platelet Count 173 K/mcL (140-400); Red Blood Count 3.08 M/mcL (4.19-5.50); Red Cell Distribution Width 16.2 % (11.5-14.5); Segmented Neutrophils % 55.8 %; White Blood Count 11.1 K/mcL (4.3-11.1)
[2020-12-27 05:46] LABS: Potassium 3.4 mEq/L (3.5-5.1)
[2020-12-27] MEDS: tiZANidine 4 MG TABLET PO PRN (06:43)
[2020-12-27] MEDS: Insulin LISPRO 300 UNITS/3 ML VIAL SUBQ SCH ×4 (09:24→23:33)
[2020-12-27] MEDS: Aspirin Enteric Coated 81 MG Tablet PO SCH (09:27)
[2020-12-27] MEDS: Furosemide 40 MG TABLET PO SCH (09:27)
[2020-12-27] MEDS: Insulin NPH/REG 70/30 100 UNIT/ML (x5UNIT) SUBQ SCH ×3 (09:28→16:51)
[2020-12-27] MEDS: allopurinoL 100 MG TABLET PO SCH (09:28)
[2020-12-27 11:16] LABS: Bacteria,Urine Few per hpf (None-Few); Bilirubin,Urine Negative (Negative); Blood,Urine Large (Negative); Clarity,Urine Clear (Clear); Color,Urine Yellow (Yellow); Glucose,Urine (UA) 100 mg/dL (Normal); Hyaline Casts,Urine Few per lpf (None Seen); Ketones,Urine Trace mg/dL (Negative); Leukocyte Esterase,Urine Negative (Negative); Mucus,Urine Few per lpf (None-Few); Nitrite,Urine Negative (Negative); Protein,Urine >=300 mg/dL (Neg-Trace); RBC,Urine 30-50 per hpf (0-3); Specific Gravity,Urine 1.018 (1.010-1.025); Squamous Epithelial Cell,Urine Few per hpf (None-Few); Urobilinogen,Urine Normal (Normal)
[2020-12-27] MEDS ORDERED: Perflutren Lipid Microsphere 1.3 ML in 0.9 % Sodium Chloride 8.7 ML IVP PRN (11:19)
[2020-12-27] MEDS: Insulin DETEMIR 100 UNIT/ML X5UNITS SUBQ SCH (23:20)
[2020-12-28] MEDS: tiZANidine 4 MG TABLET PO PRN (00:48)
[2020-12-28] MEDS ORDERED: Insulin Human Regular 10 UNIT in 0.9 % Sodium Chloride 10 ML IV ONE ×2 (02:11→04:41)
[2020-12-28 03:16] LABS: BUN/Creatinine Ratio 23 (6-26); Blood Urea Nitrogen 31 mg/dL (8-23); Carbon Dioxide 21 mEq/L (23-29); Chloride 101 mEq/L (98-107); Glucose 477 mg/dL (70-105); Osmolality,Calculated 302 (280-300); Potassium 3.9 mEq/L (3.5-5.1); Sodium 132 mEq/L (136-145); eGFR For African Americans > 60 (> 60); eGFR For Non-African Americans 54 (> 60)
[2020-12-28 03:23] LABS: Basophils % 0.3 %; Eosinophils # 0.1 K/mcL (0.0-0.6); Eosinophils % 0.7 %; Hematocrit 28.5 % (37.5-50.1); Hemoglobin 8.9 g/dL (12.9-16.9); Immature Granulocytes % 2.5 % (0-4); Lymphocytes % 21.7 %; Mean Corpuscular HGB Conc 31.2 g/dL (31.6-35.5); Mean Corpuscular Hemoglobin 26.6 pg (28.0-33.3); Mean Corpuscular Volume 85.1 fL (83.0-100.0); Mean Platelet Volume 9.2 fL (9.4-12.4); Monocytes # 1.6 K/mcL (0.0-1.3); Monocytes % 18.1 %; Neutrophils # 5.1 K/mcL (1.6-8.9); Platelet Count 204 K/mcL (140-400); Red Blood Count 3.35 M/mcL (4.19-5.50); Segmented Neutrophils % 56.7 %
[2020-12-28] MEDS: *HR* OxyCODONE/APAP 7.5/325 TABLET PO PRN ×2 (06:19→15:39)
[2020-12-28] MEDS: Insulin LISPRO 300 UNITS/3 ML VIAL SUBQ SCH ×2 (08:54→16:07)
[2020-12-28] MEDS: Furosemide 40 MG TABLET PO SCH (08:55)
[2020-12-28] MEDS: allopurinoL 100 MG TABLET PO SCH (08:55)
[2020-12-28] MEDS: Insulin NPH/REG 70/30 100 UNIT/ML (x5UNIT) SUBQ SCH ×2 (08:55→16:06)
[2020-12-28] MEDS: Aspirin Enteric Coated 81 MG Tablet PO SCH (08:55)
[2020-12-28 11:05] VITALS: BP 155/88
[2020-12-28] MEDS ORDERED: FLU Vac QV 20-21 (6Month+)/PF 0.5 ML SYRINGE IM ONE (13:32)
[2020-12-28 15:38] LABS: Influenza A PCR Negative (Negative); Influenza B PCR Negative (Negative); Resp. Syncytial Virus PCR Negative (Negative)
[2020-12-28 15:39] LABS: SARS-CoV-2 by PCR (In House) Negative (Negative)
[2020-12-28] MEDS ORDERED: Insulin LISPRO 300 UNITS/3 ML VIAL SUBQ STA (16:37)
== END 2020-12-28 17:08 | DRG 240 ==
LOC: 3NENU → SUATTDRO 15:50
PROVIDERS: ADMIT Internal Medicine; ATTEND Family Medicine

== ENCOUNTER 2021-05-13 11:03 | Inpatient (IN) ==
[2021-05-13] MEDS ORDERED: ceFAZolin 1,000 MG in Water for inj. (sterile) 10 ML IVP ONE (12:06)
[2021-05-13] MEDS ORDERED: Vancomycin 2,000 MG/520 ML IV.SOLN IVPB ONE (12:10)
[2021-05-13 12:35] LABS: Basophils % 0.3 %; Eosinophils % 0.4 %; Hematocrit 33.8 % (37.5-50.1); Hemoglobin 10.8 g/dL (12.9-16.9); Immature Granulocytes % 1.7 % (0-4); Lymphocytes # 2.4 K/mcL (0.6-4.6); Lymphocytes % 31.4 %; Mean Corpuscular Volume 87.6 fL (83.0-100.0); Mean Platelet Volume 9.2 fL (9.4-12.4); Monocytes # 1.2 K/mcL (0.0-1.3); Neutrophils # 3.8 K/mcL (1.6-8.9); Platelet Count 146 K/mcL (140-400); Red Blood Count 3.86 M/mcL (4.19-5.50); Red Cell Distribution Width 15.8 % (11.5-14.5); Segmented Neutrophils % 50.2 %; White Blood Count 7.6 K/mcL (4.3-11.1)
[2021-05-13 12:42] LABS: INR 2.7; Prothrombin Time 30.7 Seconds (9.4-12.1)
[2021-05-13 12:44] LABS: Activated Partial Thrombo Time 48.8 Seconds (26.0-36.0)
[2021-05-13 12:53] LABS: Calcium 8.6 mg/dL (8.6-10.3); Potassium 4.5 mEq/L (3.5-5.1)
[2021-05-13] MEDS ORDERED: Ketorolac 15 MG/ML VIAL IVP ONE (13:55)
[2021-05-13] MEDS ORDERED: Isovue-370 500 ML BOTTLE IVP ONE (14:20)
[2021-05-13 15:31] LABS: Bilirubin,Urine Negative (Negative); Blood,Urine Moderate (Negative); Clarity,Urine Clear (Clear); Color,Urine Light-Yellow (Yellow); Glucose,Urine (UA) 500 mg/dL (Normal); Ketones,Urine Negative (Negative); Leukocyte Esterase,Urine Negative (Negative); Mucus,Urine Few per lpf (None-Few); Nitrite,Urine Negative (Negative); PH,Urine 6.5 pH Units (5.0-8.0); Protein,Urine >=300 mg/dL (Neg-Trace); Specific Gravity,Urine 1.018 (1.010-1.025); Urobilinogen,Urine Normal (Normal); WBC,Urine 0-3 per hpf (0-3)
[2021-05-13] MEDS ORDERED: Melatonin 3 MG TABLET PO PRN (20:15)
[2021-05-13] MEDS ORDERED: Ondansetron 4 MG/2 ML VIAL IVP PRN (20:15)
[2021-05-13] MEDS ORDERED: Acetaminophen 325 MG TABLET PO PRN (20:15)
[2021-05-13] MEDS ORDERED: Naloxone 0.4 MG/ML INJ IVP PRN (20:15)
[2021-05-13] MEDS ORDERED: Dextrose Gel 15 GM/37.5 ML TUBE PO PRN ×2 (20:38)
[2021-05-13] MEDS ORDERED: *HR* Dextrose 50 % in Water (Vial) 50 ML VIAL IVP PRN (20:38)
[2021-05-13] MEDS ORDERED: D5% in Water 1,000 ML IVC PRN (20:38)
[2021-05-13] MEDS ORDERED: Insulin DETEMIR 100 UNIT/ML X5UNITS SUBQ SCH (21:00)
[2021-05-13] MEDS: ceFAZolin 1,000 MG in Water for inj. (sterile) 10 ML IVP SCH (21:01)
[2021-05-13] MEDS: carvediloL 6.25 MG TABLET PO SCH (21:02)
[2021-05-13] MEDS ORDERED: *HR* Warfarin 10 MG TABLET PO ONE (21:12)
[2021-05-13] MEDS: Insulin LISPRO 300 UNITS/3 ML VIAL SUBQ SCH (22:05)
[2021-05-14] MEDS: ceFAZolin 1,000 MG in Water for inj. (sterile) 10 ML IVP SCH ×3 (05:37→20:19)
[2021-05-14 07:53] LABS: Hematocrit 33.6 % (37.5-50.1); Hemoglobin 10.9 g/dL (12.9-16.9); Mean Corpuscular HGB Conc 32.4 g/dL (31.6-35.5); Mean Corpuscular Hemoglobin 28.2 pg (28.0-33.3); Mean Platelet Volume 9.2 fL (9.4-12.4); Platelet Count 141 K/mcL (140-400); Red Blood Count 3.86 M/mcL (4.19-5.50); Red Cell Distribution Width 15.8 % (11.5-14.5); White Blood Count 6.3 K/mcL (4.3-11.1)
[2021-05-14] MEDS: Aspirin 81 MG TAB.CHEW PO SCH (07:57)
[2021-05-14] MEDS: Cholecalciferol (D-3) 1,000 UNIT (25MCG) TABLET PO SCH (07:58)
[2021-05-14] MEDS: Multivit/Ca/Min/Fe/FA 1 TAB TABLET PO SCH (07:58)
[2021-05-14] MEDS: allopurinoL 100 MG TABLET PO SCH (07:58)
[2021-05-14] MEDS: Insulin LISPRO 300 UNITS/3 ML VIAL SUBQ SCH ×4 (07:58→20:20)
[2021-05-14] MEDS: carvediloL 6.25 MG TABLET PO SCH ×2 (07:58→17:17)
[2021-05-14 08:00] LABS: INR 2.2; Prothrombin Time 25.1 Seconds (9.4-12.1)
[2021-05-14 08:09] LABS: Albumin 3.1 g/dL (3.5-5.7); Bilirubin,Total 0.3 mg/dL (0.3-1.0); Calcium 8.3 mg/dL (8.6-10.3); Globulin 3.2 g/dL (2.4-3.5); Potassium 4.2 mEq/L (3.5-5.1); Total Protein 6.3 g/dL (6.4-8.9)
[2021-05-14 08:39] LABS: Monocytes # 1.1 K/mcL (0.0-1.3)
[2021-05-14 08:40] LABS: Platelet Estimate Normal (Normal); Reactive Lymphocytes Present (Not Present)
[2021-05-14] MEDS: amLODIPine 5 MG TABLET PO SCH (09:23)
[2021-05-14] MEDS: Insulin DETEMIR 100 UNIT/ML X5UNITS SUBQ SCH ×2 (09:23→20:20)
[2021-05-14] MEDS: Vancomycin 2,000 MG/520 ML IV.SOLN IVPB SCH (12:41)
[2021-05-14] MEDS ORDERED: Warfarin perPT PO PRN (18:00)
[2021-05-14] MEDS ORDERED: *HR* Warfarin 10 MG TABLET PO ONE (18:00)
[2021-05-15 01:24] LABS: INR 2.2; Prothrombin Time 24.5 Seconds (9.4-12.1)
[2021-05-15] MEDS: ceFAZolin 1,000 MG in Water for inj. (sterile) 10 ML IVP SCH ×3 (03:19→20:14)
[2021-05-15] MEDS: Insulin LISPRO 300 UNITS/3 ML VIAL SUBQ SCH ×7 (07:54→20:19)
[2021-05-15] MEDS: Multivit/Ca/Min/Fe/FA 1 TAB TABLET PO SCH (07:54)
[2021-05-15] MEDS: allopurinoL 100 MG TABLET PO SCH (07:54)
[2021-05-15] MEDS: carvediloL 6.25 MG TABLET PO SCH ×2 (07:54→17:36)
[2021-05-15] MEDS: Cholecalciferol (D-3) 1,000 UNIT (25MCG) TABLET PO SCH (07:54)
[2021-05-15] MEDS: Insulin DETEMIR 100 UNIT/ML X5UNITS SUBQ SCH ×2 (07:54→20:18)
[2021-05-15] MEDS: amLODIPine 5 MG TABLET PO SCH (07:54)
[2021-05-15] MEDS: Aspirin 81 MG TAB.CHEW PO SCH (07:54)
[2021-05-15 09:21] LABS: Basophils % 0.4 %; Eosinophils % 0.4 %; Hematocrit 33.9 % (37.5-50.1); Hemoglobin 10.7 g/dL (12.9-16.9); Immature Granulocytes % 2.8 % (0-4); Lymphocytes # 1.6 K/mcL (0.6-4.6); Lymphocytes % 28.5 %; Mean Corpuscular HGB Conc 31.6 g/dL (31.6-35.5); Mean Corpuscular Hemoglobin 27.5 pg (28.0-33.3); Mean Corpuscular Volume 87.1 fL (83.0-100.0); Mean Platelet Volume 9.4 fL (9.4-12.4); Monocytes % 17.4 %; Neutrophils # 2.9 K/mcL (1.6-8.9); Platelet Count 140 K/mcL (140-400); Red Blood Count 3.89 M/mcL (4.19-5.50); Red Cell Distribution Width 15.5 % (11.5-14.5); Segmented Neutrophils % 50.5 %; White Blood Count 5.7 K/mcL (4.3-11.1)
[2021-05-15 09:40] LABS: Calcium 8.5 mg/dL (8.6-10.3); Magnesium 1.8 mg/dL (1.6-2.6); Phosphorous 4.7 mg/dL (2.7-4.5); Potassium 4.1 mEq/L (3.5-5.1)
[2021-05-15] MEDS ORDERED: amLODIPine 5 MG TABLET PO ONE (13:20)
[2021-05-15] MEDS: Vancomycin 2,000 MG/520 ML IV.SOLN IVPB SCH (14:05)
[2021-05-15] MEDS ORDERED: *HR* Warfarin 10 MG TABLET PO ONE (18:00)
[2021-05-16] MEDS: ceFAZolin 1,000 MG in Water for inj. (sterile) 10 ML IVP SCH (04:20)
[2021-05-16 05:40] LABS: Basophils % 0.3 %; Eosinophils % 0.5 %; Hematocrit 34.7 % (37.5-50.1); Hemoglobin 10.8 g/dL (12.9-16.9); Immature Granulocytes % 2.5 % (0-4); Lymphocytes # 1.7 K/mcL (0.6-4.6); Lymphocytes % 28.1 %; Mean Corpuscular HGB Conc 31.1 g/dL (31.6-35.5); Mean Corpuscular Hemoglobin 27.1 pg (28.0-33.3); Mean Corpuscular Volume 87.2 fL (83.0-100.0); Monocytes # 1.1 K/mcL (0.0-1.3); Monocytes % 18.4 %; Neutrophils # 3.1 K/mcL (1.6-8.9); Platelet Count 147 K/mcL (140-400); Red Blood Count 3.98 M/mcL (4.19-5.50); Red Cell Distribution Width 15.4 % (11.5-14.5); Segmented Neutrophils % 50.2 %; White Blood Count 6.1 K/mcL (4.3-11.1)
[2021-05-16 05:44] LABS: INR 2.6; Prothrombin Time 29.1 Seconds (9.4-12.1)
[2021-05-16 06:04] LABS: Platelet Estimate Normal (Normal)
[2021-05-16 07:32] LABS: Calcium 8.7 mg/dL (8.6-10.3); Magnesium 1.8 mg/dL (1.6-2.6); Phosphorous 4.9 mg/dL (2.7-4.5); Potassium 3.8 mEq/L (3.5-5.1)
[2021-05-16] MEDS: Insulin LISPRO 300 UNITS/3 ML VIAL SUBQ SCH ×2 (08:10→08:23)
[2021-05-16] MEDS: Insulin DETEMIR 100 UNIT/ML X5UNITS SUBQ SCH (08:23)
[2021-05-16] MEDS: Multivit/Ca/Min/Fe/FA 1 TAB TABLET PO SCH (08:24)
[2021-05-16] MEDS: allopurinoL 100 MG TABLET PO SCH (08:24)
[2021-05-16] MEDS: Cholecalciferol (D-3) 1,000 UNIT (25MCG) TABLET PO SCH (08:24)
[2021-05-16] MEDS: Aspirin 81 MG TAB.CHEW PO SCH (08:24)
[2021-05-16] MEDS: carvediloL 6.25 MG TABLET PO SCH (08:24)
[2021-05-16] MEDS ORDERED: amLODIPine 5 MG TABLET PO SCH (09:00)
[2021-05-16 11:00] VITALS: BP 157/81; PULSE 83; TEMP 98.4; O2SAT 98
== END 2021-05-16 12:37 | disposition home or self-care (01) | DRG 728 ==
LOC: EMEROOARM 11:03 → 3BNU 11:03 → SUATTDRO 18:26 → 3BNU 19:48
PROVIDERS: ADMIT Internal Medicine; ATTEND Internal Medicine

== ENCOUNTER 2022-04-10 13:19 | Inpatient (IN) ==
[2022-04-10] MEDS ORDERED: Ondansetron 4 MG/2 ML VIAL IVP PRN (16:12)
[2022-04-10] MEDS ORDERED: Naloxone 0.4 MG/ML INJ IVP PRN (16:12)
[2022-04-10] MEDS ORDERED: *HR* Dextrose 50 % in Water (Syg) 50 ML SYRINGE IVP PRN (16:15)
[2022-04-10] MEDS ORDERED: Dextrose Gel 15 GM/37.5 ML TUBE PO PRN ×2 (16:15)
[2022-04-10] MEDS ORDERED: D5% in Water 1,000 ML IVC PRN (16:15)
[2022-04-10] MEDS: Insulin LISPRO 300 UNITS/3 ML VIAL SUBQ SCH (17:09)
[2022-04-10] MEDS: Pantoprazole 40 MG VIAL IVP SCH (17:35)
[2022-04-10] MEDS ORDERED: 0.9 % Sodium Chloride 250 ML ONE (18:40)
[2022-04-10] MEDS: Insulin DETEMIR 100 UNIT/ML X5UNITS SUBQ SCH (21:05)
[2022-04-10] MEDS ORDERED: Acetaminophen 325 MG TABLET PO PRN (21:08)
[2022-04-10 22:32] LABS: Hematocrit 25.3 % (37.5-50.1); Hemoglobin 8.2 g/dL (12.9-16.9)
[2022-04-11 02:08] LABS: Basophils % 0.2 %; Eosinophils % 0.1 %; Hematocrit 25.7 % (37.5-50.1); Immature Granulocytes % 1.9 % (0-4); Lymphocytes # 2.9 K/mcL (0.6-4.6); Lymphocytes % 20.9 %; Mean Corpuscular HGB Conc 31.1 g/dL (31.6-35.5); Mean Corpuscular Hemoglobin 27.8 pg (28.0-33.3); Mean Corpuscular Volume 89.2 fL (83.0-100.0); Mean Platelet Volume 9.9 fL (9.4-12.4); Monocytes # 3.6 K/mcL (0.0-1.3); Monocytes % 25.9 %; Platelet Count 128 K/mcL (140-400); Red Blood Count 2.88 M/mcL (4.19-5.50)
[2022-04-11 02:16] LABS: INR 3.5; Prothrombin Time 38.5 Seconds (9.4-12.1)
[2022-04-11 02:20] LABS: Neutrophils # 7.1 K/mcL (1.6-8.9)
[2022-04-11 02:26] LABS: Potassium 4.1 mEq/L (3.5-5.1)
[2022-04-11 02:42] LABS: Platelet Estimate Normal (Normal)
[2022-04-11 03:07] LABS: Folate > 22.3 ng/mL (3.0-16.0); Vitamin B12 525 pg/mL (250-1100)
[2022-04-11 04:18] LABS: Bacteria,Urine Few per hpf (None-Few); Bilirubin,Urine Negative (Negative); Blood,Urine Small (Negative); Budding Yeast,Urine Few per hpf (None Seen); Clarity,Urine Turbid (Clear); Color,Urine Yellow (Yellow); Glucose,Urine (UA) >=1000 mg/dL (Normal); Hyaline Casts,Urine Few per lpf (None Seen); Ketones,Urine Negative (Negative); Leukocyte Esterase,Urine Negative (Negative); Mucus,Urine Few per lpf (None-Few); Nitrite,Urine Negative (Negative); Protein,Urine >=600 mg/dL (Neg-Trace); Specific Gravity,Urine 1.017 (1.010-1.025); Squamous Epithelial Cell,Urine Few per hpf (None-Few); Urobilinogen,Urine Normal (Normal)
[2022-04-11] MEDS: Pantoprazole 40 MG VIAL IVP SCH ×2 (05:36→17:02)
[2022-04-11] MEDS ORDERED: Furosemide 20 MG TABLET PO SCH (09:00)
[2022-04-11 09:18] LABS: Adenovirus F 40/41 PCR Not detected (Not detect); Astrovirus PCR Not detected (Not detect); C.difficile Toxin A/B Gene PCR Not detected (Not detect); Campylobacter by PCR Not detected (Not detect); Cryptosporidium by PCR Not detected (Not detect); Cyclospora cayetanensis PCR Not detected (Not detect); Entamoeba histolytica PCR Not detected (Not detect); Enteroaggregative E.coli(EAEC) Not detected (Not detect); Enteropathogenic E.coli(EPEC) Not detected (Not detect); Enterotoxigenic E.coli (ETEC) Not detected (Not detect); Giardia lamblia PCR Not detected (Not detect); Norovirus GI/GII PCR Not detected (Not detect); Plesiomonas shigelloides PCR Not detected (Not detect); Rotavirus A PCR Not detected (Not detect); Salmonella PCR Not detected (Not detect); Sapovirus PCR Not detected (Not detect); Shig/EnteroinvasiveE coli EIEC Not detected (Not detect); Shigalike tox-prod E coli STEC Not detected (Not detect); Vibrio PCR Not detected (Not detect); Vibrio cholerae PCR Not detected (Not detect); Yersinia enterocolitica PCR Not detected (Not detect)
[2022-04-11] MEDS: Insulin LISPRO 300 UNITS/3 ML VIAL SUBQ SCH ×3 (10:45→19:26)
[2022-04-11] MEDS: Finasteride 5 MG TABLET PO SCH ×2 (10:46→14:23)
[2022-04-11] MEDS: amLODIPine 5 MG TABLET PO SCH ×2 (10:46→14:23)
[2022-04-11] MEDS: carvediloL 6.25 MG TABLET PO SCH ×3 (10:46→20:28)
[2022-04-11] MEDS: Insulin DETEMIR 100 UNIT/ML X5UNITS SUBQ SCH ×2 (10:46→20:35)
[2022-04-11] MEDS ORDERED: Perflutren Lipid Microsphere 1.3 ML in 0.9 % Sodium Chloride 8.7 ML IVP PRN (10:55)
[2022-04-11] MEDS: Furosemide 40 MG/4 ML VIAL IVP SCH (14:21)
[2022-04-11] MEDS: Aspirin Enteric Coated 81 MG Tablet PO SCH (14:22)
[2022-04-11] MEDS: Albumin 25% 25gram/100mL 25 GM/100 ML IV.SOLN IVPB SCH (17:02)
[2022-04-12] MEDS: Albumin 25% 25gram/100mL 25 GM/100 ML IV.SOLN IVPB SCH ×4 (00:46→23:27)
[2022-04-12] MEDS: Pantoprazole 40 MG VIAL IVP SCH ×2 (06:12→18:22)
[2022-04-12] MEDS: Insulin LISPRO 300 UNITS/3 ML VIAL SUBQ SCH ×3 (08:12→16:44)
[2022-04-12] MEDS: Aspirin Enteric Coated 81 MG Tablet PO SCH (08:15)
[2022-04-12] MEDS: amLODIPine 5 MG TABLET PO SCH (08:15)
[2022-04-12] MEDS: Furosemide 40 MG/4 ML VIAL IVP SCH (08:15)
[2022-04-12] MEDS: Finasteride 5 MG TABLET PO SCH (08:15)
[2022-04-12] MEDS: carvediloL 6.25 MG TABLET PO SCH ×2 (08:15→20:14)
[2022-04-12] MEDS: Insulin DETEMIR 100 UNIT/ML X5UNITS SUBQ SCH ×2 (08:17→20:15)
[2022-04-12 08:21] LABS: Basophils % 0.2 %; Eosinophils % 0.4 %; Hematocrit 24.9 % (37.5-50.1); Hemoglobin 7.9 g/dL (12.9-16.9); Immature Granulocytes % 2.6 % (0-4); Lymphocytes # 1.4 K/mcL (0.6-4.6); Lymphocytes % 16.9 %; Mean Corpuscular HGB Conc 31.7 g/dL (31.6-35.5); Mean Corpuscular Hemoglobin 27.6 pg (28.0-33.3); Mean Corpuscular Volume 87.1 fL (83.0-100.0); Mean Platelet Volume 9.6 fL (9.4-12.4); Monocytes % 25.2 %; Neutrophils # 4.4 K/mcL (1.6-8.9); Platelet Count 142 K/mcL (140-400); Red Blood Count 2.86 M/mcL (4.19-5.50); Segmented Neutrophils % 54.7 %
[2022-04-12 08:28] LABS: INR 3.5; Prothrombin Time 38.8 Seconds (9.4-12.1)
[2022-04-12 08:40] LABS: Magnesium 2.4 mg/dL (1.6-2.6); Phosphorous 5.9 mg/dL (2.7-4.5); Potassium 4.5 mEq/L (3.5-5.1)
[2022-04-12 09:29] LABS: Platelet Estimate Normal (Normal)
[2022-04-13] MEDS: Pantoprazole 40 MG VIAL IVP SCH ×2 (05:09→19:30)
[2022-04-13] MEDS ORDERED: Ipratropium/Albuterol Neb 3 ML IH PRN (05:42)
[2022-04-13] MEDS: Insulin LISPRO 300 UNITS/3 ML VIAL SUBQ SCH ×3 (08:27→17:12)
[2022-04-13] MEDS: carvediloL 6.25 MG TABLET PO SCH ×2 (08:28→19:40)
[2022-04-13] MEDS: Finasteride 5 MG TABLET PO SCH (08:28)
[2022-04-13] MEDS: Aspirin Enteric Coated 81 MG Tablet PO SCH (08:28)
[2022-04-13] MEDS: amLODIPine 5 MG TABLET PO SCH (08:28)
[2022-04-13] MEDS: Albumin 25% 25gram/100mL 25 GM/100 ML IV.SOLN IVPB SCH ×2 (08:29→17:06)
[2022-04-13] MEDS: Insulin DETEMIR 100 UNIT/ML X5UNITS SUBQ SCH ×2 (08:30→20:46)
[2022-04-13 09:20] LABS: Calcium 7.8 mg/dL (8.6-10.3); Potassium 4.3 mEq/L (3.5-5.1)
[2022-04-13] MEDS: Furosemide 40 MG/4 ML VIAL IVP SCH (10:10)
[2022-04-14 02:54] LABS: Hemoglobin 7.6 g/dL (12.9-16.9); Mean Corpuscular HGB Conc 31.7 g/dL (31.6-35.5); Mean Corpuscular Hemoglobin 27.8 pg (28.0-33.3); Mean Corpuscular Volume 87.9 fL (83.0-100.0); Mean Platelet Volume 9.9 fL (9.4-12.4); Platelet Count 140 K/mcL (140-400); Red Blood Count 2.73 M/mcL (4.19-5.50); White Blood Count 9.1 K/mcL (4.3-11.1)
[2022-04-14 03:09] LABS: INR 1.9; Prothrombin Time 20.9 Seconds (9.4-12.1)
[2022-04-14 03:11] LABS: Calcium 8.4 mg/dL (8.6-10.3); Potassium 4.6 mEq/L (3.5-5.1)
[2022-04-14] MEDS: Pantoprazole 40 MG VIAL IVP SCH (05:04)
[2022-04-14] MEDS: Furosemide 40 MG/4 ML VIAL IVP SCH (08:34)
[2022-04-14] MEDS: amLODIPine 5 MG TABLET PO SCH (08:35)
[2022-04-14] MEDS: carvediloL 6.25 MG TABLET PO SCH ×2 (08:35→21:28)
[2022-04-14] MEDS: Finasteride 5 MG TABLET PO SCH (08:35)
[2022-04-14] MEDS: Insulin LISPRO 300 UNITS/3 ML VIAL SUBQ SCH ×4 (08:35→16:39)
[2022-04-14] MEDS: Aspirin Enteric Coated 81 MG Tablet PO SCH (08:35)
[2022-04-14] MEDS: Insulin DETEMIR 100 UNIT/ML X5UNITS SUBQ SCH ×2 (08:55→21:34)
[2022-04-14] MEDS: Albumin 25% 25gram/100mL 25 GM/100 ML IV.SOLN IVPB SCH ×2 (14:05→21:29)
[2022-04-14] MEDS ORDERED: *HR* Heparin 5,000 UNIT/ML VIAL IVP PRN ×2 (14:42)
[2022-04-14 15:27] LABS: Hematocrit 24.2 % (37.5-50.1); Hemoglobin 7.6 g/dL (12.9-16.9); Mean Corpuscular HGB Conc 31.4 g/dL (31.6-35.5); Mean Corpuscular Hemoglobin 27.5 pg (28.0-33.3); Mean Corpuscular Volume 87.7 fL (83.0-100.0); Mean Platelet Volume 9.8 fL (9.4-12.4); Platelet Count 148 K/mcL (140-400); Red Blood Count 2.76 M/mcL (4.19-5.50); Red Cell Distribution Width 15.1 % (11.5-14.5)
[2022-04-14 15:35] LABS: Heparin anti-factor XA UFH < 0.04 IU/mL (0.30-0.70); INR 1.7; Prothrombin Time 18.4 Seconds (9.4-12.1)
[2022-04-14] MEDS: Heparin 25,000UNIT/250ML 1/2NS 25,000 UNIT/250 ML IV.SOLN IVC SCH (16:37)
[2022-04-14] MEDS: Nystatin POWDER 30 GM BOTTLE TP SCH (21:32)
[2022-04-15] MEDS: Heparin 25,000UNIT/250ML 1/2NS 25,000 UNIT/250 ML IV.SOLN IVC SCH (02:57)
[2022-04-15 05:19] LABS: Hematocrit 23.2 % (37.5-50.1); Hemoglobin 7.2 g/dL (12.9-16.9); Mean Corpuscular Hemoglobin 27.5 pg (28.0-33.3); Mean Corpuscular Volume 88.5 fL (83.0-100.0); Mean Platelet Volume 9.7 fL (9.4-12.4); Platelet Count 145 K/mcL (140-400); Red Blood Count 2.62 M/mcL (4.19-5.50); White Blood Count 9.1 K/mcL (4.3-11.1)
[2022-04-15 05:27] LABS: INR 1.6; Prothrombin Time 17.5 Seconds (9.4-12.1)
[2022-04-15 05:37] LABS: Calcium 8.3 mg/dL (8.6-10.3); Potassium 4.2 mEq/L (3.5-5.1)
[2022-04-15 05:38] LABS: Albumin 3.8 g/dL (3.5-5.7); Phosphorous 4.7 mg/dL (2.7-4.5)
[2022-04-15] MEDS: Albumin 25% 25gram/100mL 25 GM/100 ML IV.SOLN IVPB SCH ×3 (05:57→21:28)
[2022-04-15 06:43] LABS: Activated Partial Thrombo Time 35.8 Seconds (26.0-36.0)
[2022-04-15] MEDS: Aspirin Enteric Coated 81 MG Tablet PO SCH (08:42)
[2022-04-15] MEDS: Finasteride 5 MG TABLET PO SCH (08:42)
[2022-04-15] MEDS: Insulin DETEMIR 100 UNIT/ML X5UNITS SUBQ SCH ×2 (08:43→21:42)
[2022-04-15] MEDS: amLODIPine 5 MG TABLET PO SCH (08:43)
[2022-04-15] MEDS: carvediloL 6.25 MG TABLET PO SCH ×2 (08:43→21:28)
[2022-04-15] MEDS: Insulin LISPRO 300 UNITS/3 ML VIAL SUBQ SCH ×6 (08:43→17:54)
[2022-04-15] MEDS: Furosemide 40 MG/4 ML VIAL IVP SCH ×2 (08:43→21:27)
[2022-04-15] MEDS: Nystatin POWDER 30 GM BOTTLE TP SCH ×2 (08:44→21:28)
[2022-04-15] MEDS ORDERED: 0.9 % Sodium Chloride 250 ML ONE (14:57)
[2022-04-16 03:37] LABS: Hemoglobin 7.7 g/dL (12.9-16.9); Mean Corpuscular HGB Conc 30.8 g/dL (31.6-35.5); Mean Corpuscular Hemoglobin 27.9 pg (28.0-33.3); Mean Corpuscular Volume 90.6 fL (83.0-100.0); Mean Platelet Volume 10.5 fL (9.4-12.4); Platelet Count 151 K/mcL (140-400); Red Blood Count 2.76 M/mcL (4.19-5.50); Red Cell Distribution Width 15.4 % (11.5-14.5); White Blood Count 9.3 K/mcL (4.3-11.1)
[2022-04-16 03:57] LABS: Calcium 8.7 mg/dL (8.6-10.3); Potassium 4.5 mEq/L (3.5-5.1)
[2022-04-16] MEDS: Albumin 25% 25gram/100mL 25 GM/100 ML IV.SOLN IVPB SCH (04:52)
[2022-04-16] MEDS: Aspirin Enteric Coated 81 MG Tablet PO SCH (08:59)
[2022-04-16] MEDS: Insulin DETEMIR 100 UNIT/ML X5UNITS SUBQ SCH ×2 (08:59→20:10)
[2022-04-16] MEDS: Furosemide 40 MG/4 ML VIAL IVP SCH ×2 (08:59→20:02)
[2022-04-16] MEDS: amLODIPine 5 MG TABLET PO SCH (09:00)
[2022-04-16] MEDS: Insulin LISPRO 300 UNITS/3 ML VIAL SUBQ SCH ×6 (09:00→17:10)
[2022-04-16] MEDS: carvediloL 6.25 MG TABLET PO SCH ×2 (09:00→20:02)
[2022-04-16] MEDS: Finasteride 5 MG TABLET PO SCH (09:00)
[2022-04-16] MEDS: Nystatin POWDER 30 GM BOTTLE TP SCH ×2 (09:02→20:03)
[2022-04-17 03:56] LABS: Hematocrit 27.3 % (37.5-50.1); Hemoglobin 8.3 g/dL (12.9-16.9); Mean Corpuscular HGB Conc 30.4 g/dL (31.6-35.5); Mean Corpuscular Hemoglobin 27.6 pg (28.0-33.3); Mean Corpuscular Volume 90.7 fL (83.0-100.0); Mean Platelet Volume 10.1 fL (9.4-12.4); Platelet Count 182 K/mcL (140-400); Red Blood Count 3.01 M/mcL (4.19-5.50); Red Cell Distribution Width 15.5 % (11.5-14.5); White Blood Count 9.4 K/mcL (4.3-11.1)
[2022-04-17 04:18] LABS: Potassium 4.4 mEq/L (3.5-5.1)
[2022-04-17] MEDS: Insulin LISPRO 300 UNITS/3 ML VIAL SUBQ SCH ×6 (07:47→16:02)
[2022-04-17] MEDS: carvediloL 6.25 MG TABLET PO SCH ×2 (07:49→21:25)
[2022-04-17] MEDS: amLODIPine 5 MG TABLET PO SCH (07:49)
[2022-04-17] MEDS: Furosemide 40 MG/4 ML VIAL IVP SCH ×2 (07:49→22:39)
[2022-04-17] MEDS: Finasteride 5 MG TABLET PO SCH (07:49)
[2022-04-17] MEDS: Nystatin POWDER 30 GM BOTTLE TP SCH ×2 (07:50→22:38)
[2022-04-17] MEDS: Aspirin Enteric Coated 81 MG Tablet PO SCH (07:50)
[2022-04-17] MEDS: Insulin DETEMIR 100 UNIT/ML X5UNITS SUBQ SCH ×2 (07:54→21:25)
[2022-04-17] MEDS: Albumin 25% 25gram/100mL 25 GM/100 ML IV.SOLN IVPB SCH ×2 (11:55→22:39)
[2022-04-17] MEDS ORDERED: *HR* Heparin 5,000 UNIT/ML VIAL IVP PRN ×2 (17:35)
[2022-04-17] MEDS ORDERED: *HR* Heparin 5,000 UNIT/ML VIAL IVP ONE (17:35)
[2022-04-17 18:11] LABS: Hematocrit 27.9 % (37.5-50.1); Hemoglobin 8.6 g/dL (12.9-16.9); Mean Corpuscular HGB Conc 30.8 g/dL (31.6-35.5); Mean Corpuscular Volume 90.9 fL (83.0-100.0); Mean Platelet Volume 9.7 fL (9.4-12.4); Platelet Count 172 K/mcL (140-400); Red Blood Count 3.07 M/mcL (4.19-5.50); Red Cell Distribution Width 15.5 % (11.5-14.5); White Blood Count 9.9 K/mcL (4.3-11.1)
[2022-04-17 18:24] LABS: Heparin anti-factor XA UFH < 0.04 IU/mL (0.30-0.70); INR 1.2; Prothrombin Time 13.8 Seconds (9.4-12.1)
[2022-04-17] MEDS: Heparin 25,000UNIT/250ML 1/2NS 25,000 UNIT/250 ML IV.SOLN IVC SCH (18:32)
[2022-04-18 04:00] LABS: Hematocrit 27.7 % (37.5-50.1); Hemoglobin 8.4 g/dL (12.9-16.9); Mean Corpuscular HGB Conc 30.3 g/dL (31.6-35.5); Mean Corpuscular Hemoglobin 27.8 pg (28.0-33.3); Mean Corpuscular Volume 91.7 fL (83.0-100.0); Mean Platelet Volume 10.3 fL (9.4-12.4); Platelet Count 169 K/mcL (140-400); Red Blood Count 3.02 M/mcL (4.19-5.50); Red Cell Distribution Width 15.5 % (11.5-14.5); White Blood Count 8.7 K/mcL (4.3-11.1)
[2022-04-18] MEDS: Albumin 25% 25gram/100mL 25 GM/100 ML IV.SOLN IVPB SCH ×3 (06:14→21:37)
[2022-04-18] MEDS: Insulin LISPRO 300 UNITS/3 ML VIAL SUBQ SCH ×6 (08:35→17:47)
[2022-04-18] MEDS: carvediloL 6.25 MG TABLET PO SCH ×2 (08:35→21:37)
[2022-04-18] MEDS: Aspirin Enteric Coated 81 MG Tablet PO SCH (08:35)
[2022-04-18] MEDS: Furosemide 40 MG/4 ML VIAL IVP SCH ×2 (08:36→21:35)
[2022-04-18] MEDS: amLODIPine 5 MG TABLET PO SCH (08:37)
[2022-04-18] MEDS: Nystatin POWDER 30 GM BOTTLE TP SCH ×2 (08:37→21:49)
[2022-04-18] MEDS: Finasteride 5 MG TABLET PO SCH (08:37)
[2022-04-18] MEDS: Insulin DETEMIR 100 UNIT/ML X5UNITS SUBQ SCH ×2 (08:37→21:47)
[2022-04-18] MEDS: Heparin 25,000UNIT/250ML 1/2NS 25,000 UNIT/250 ML IV.SOLN IVC SCH (15:22)
[2022-04-18] MEDS ORDERED: Warfarin perPT PO PRN (18:00)
[2022-04-18] MEDS: *HR* Warfarin 5 MG TABLET PO SCH (18:30)
[2022-04-19 02:31] LABS: Hematocrit 25.4 % (37.5-50.1); Mean Corpuscular HGB Conc 31.5 g/dL (31.6-35.5); Mean Corpuscular Hemoglobin 28.4 pg (28.0-33.3); Mean Corpuscular Volume 90.1 fL (83.0-100.0); Mean Platelet Volume 9.8 fL (9.4-12.4); Platelet Count 154 K/mcL (140-400); Red Blood Count 2.82 M/mcL (4.19-5.50); Red Cell Distribution Width 15.5 % (11.5-14.5)
[2022-04-19 02:44] LABS: Albumin 4.4 g/dL (3.5-5.7); Albumin/Globulin Ratio 1.5 (1.1-2.2); Bilirubin,Total 0.8 mg/dL (0.3-1.0); Calcium 8.8 mg/dL (8.6-10.3); Magnesium 1.8 mg/dL (1.6-2.6); Potassium 4.3 mEq/L (3.5-5.1); Total Protein 7.4 g/dL (6.4-8.9)
[2022-04-19 02:55] LABS: INR 1.2; Prothrombin Time 13.6 Seconds (9.4-12.1)
[2022-04-19] MEDS: Albumin 25% 25gram/100mL 25 GM/100 ML IV.SOLN IVPB SCH (03:48)
[2022-04-19] MEDS: Heparin 25,000UNIT/250ML 1/2NS 25,000 UNIT/250 ML IV.SOLN IVC SCH (07:16)
[2022-04-19] MEDS: Insulin DETEMIR 100 UNIT/ML X5UNITS SUBQ SCH ×2 (09:22→20:54)
[2022-04-19] MEDS: amLODIPine 5 MG TABLET PO SCH (09:22)
[2022-04-19] MEDS: Insulin LISPRO 300 UNITS/3 ML VIAL SUBQ SCH ×6 (09:22→16:29)
[2022-04-19] MEDS: carvediloL 6.25 MG TABLET PO SCH ×2 (09:22→20:54)
[2022-04-19] MEDS: Finasteride 5 MG TABLET PO SCH (09:22)
[2022-04-19] MEDS: Aspirin Enteric Coated 81 MG Tablet PO SCH (09:23)
[2022-04-19] MEDS: Furosemide 40 MG/4 ML VIAL IVP SCH ×2 (09:23→20:54)
[2022-04-19] MEDS: Nystatin POWDER 30 GM BOTTLE TP SCH ×2 (09:23→20:54)
[2022-04-19] MEDS: *HR* Warfarin 5 MG TABLET PO SCH (16:29)
[2022-04-20 02:18] LABS: Hemoglobin 8.1 g/dL (12.9-16.9); Mean Corpuscular HGB Conc 31.2 g/dL (31.6-35.5); Mean Corpuscular Hemoglobin 28.3 pg (28.0-33.3); Mean Corpuscular Volume 90.9 fL (83.0-100.0); Mean Platelet Volume 9.7 fL (9.4-12.4); Platelet Count 156 K/mcL (140-400); Red Blood Count 2.86 M/mcL (4.19-5.50); Red Cell Distribution Width 15.1 % (11.5-14.5); White Blood Count 9.9 K/mcL (4.3-11.1)
[2022-04-20 02:25] LABS: INR 1.3; Prothrombin Time 14.5 Seconds (9.4-12.1)
[2022-04-20 02:37] LABS: Calcium 8.7 mg/dL (8.6-10.3); Potassium 4.3 mEq/L (3.5-5.1)
[2022-04-20] MEDS: Insulin LISPRO 300 UNITS/3 ML VIAL SUBQ SCH ×6 (06:57→16:53)
[2022-04-20] MEDS: carvediloL 6.25 MG TABLET PO SCH ×2 (07:13→20:35)
[2022-04-20] MEDS: Furosemide 40 MG/4 ML VIAL IVP SCH ×2 (07:13→20:36)
[2022-04-20] MEDS: Finasteride 5 MG TABLET PO SCH (07:13)
[2022-04-20] MEDS: Insulin DETEMIR 100 UNIT/ML X5UNITS SUBQ SCH ×2 (07:13→20:36)
[2022-04-20] MEDS: Nystatin POWDER 30 GM BOTTLE TP SCH ×2 (07:13→20:36)
[2022-04-20] MEDS: amLODIPine 5 MG TABLET PO SCH (07:13)
[2022-04-20] MEDS: Aspirin Enteric Coated 81 MG Tablet PO SCH (07:13)
[2022-04-20] MEDS ORDERED: Albumin 25% 25gram/100mL 25 GM/100 ML IV.SOLN IVPB ONE (07:40)
[2022-04-20 10:34] LABS: Serine Protease-3 Antibody 1 AU/mL (0-19)
[2022-04-20] MEDS: *HR* Warfarin 5 MG TABLET PO SCH (16:53)
[2022-04-21 03:30] LABS: INR 1.4; Prothrombin Time 15.5 Seconds (9.4-12.1)
[2022-04-21 03:45] LABS: Calcium 8.6 mg/dL (8.6-10.3); Potassium 4.1 mEq/L (3.5-5.1)
[2022-04-21] MEDS: Aspirin Enteric Coated 81 MG Tablet PO SCH (08:15)
[2022-04-21] MEDS: Finasteride 5 MG TABLET PO SCH (08:16)
[2022-04-21] MEDS: Furosemide 40 MG/4 ML VIAL IVP SCH ×2 (08:16→21:45)
[2022-04-21] MEDS: carvediloL 6.25 MG TABLET PO SCH ×2 (08:16→21:45)
[2022-04-21] MEDS: Nystatin POWDER 30 GM BOTTLE TP SCH ×2 (08:16→21:46)
[2022-04-21] MEDS: amLODIPine 5 MG TABLET PO SCH (08:16)
[2022-04-21] MEDS: Insulin LISPRO 300 UNITS/3 ML VIAL SUBQ SCH ×6 (08:22→16:36)
[2022-04-21] MEDS: Insulin DETEMIR 100 UNIT/ML X5UNITS SUBQ SCH ×2 (08:23→21:46)
[2022-04-21] MEDS ORDERED: *HR* Warfarin 10 MG TABLET PO ONE (18:00)
[2022-04-22 05:25] VITALS: O2SAT 95
[2022-04-22 06:17] LABS: Hematocrit 27.7 % (37.5-50.1); Hemoglobin 8.7 g/dL (12.9-16.9)
[2022-04-22 06:29] LABS: INR 1.9; Prothrombin Time 21.2 Seconds (9.4-12.1)
[2022-04-22 06:41] LABS: Calcium 8.8 mg/dL (8.6-10.3)
[2022-04-22] MEDS: amLODIPine 5 MG TABLET PO SCH (08:11)
[2022-04-22] MEDS: Finasteride 5 MG TABLET PO SCH (08:12)
[2022-04-22] MEDS: carvediloL 6.25 MG TABLET PO SCH (08:12)
[2022-04-22] MEDS: Aspirin Enteric Coated 81 MG Tablet PO SCH (08:12)
[2022-04-22] MEDS: Furosemide 40 MG/4 ML VIAL IVP SCH (08:12)
[2022-04-22] MEDS: Insulin LISPRO 300 UNITS/3 ML VIAL SUBQ SCH ×4 (08:12→12:14)
[2022-04-22] MEDS: Nystatin POWDER 30 GM BOTTLE TP SCH (08:13)
[2022-04-22] MEDS: Insulin DETEMIR 100 UNIT/ML X5UNITS SUBQ SCH (08:14)
[2022-04-22 09:11] LABS: Estimated Average Glucose 223 mg/dl; Hemoglobin A1C 9.4 %
[2022-04-22 11:35] VITALS: BP 155/54; PULSE 60; TEMP 98.2
[2022-04-22] MEDS ORDERED: *HR* Warfarin 7.5 MG TABLET PO ONE (18:00)
== END 2022-04-22 13:34 | disposition home or self-care (01) | DRG 280 ==
LOC: 2NENU → SUATTDRO 15:01
PROVIDERS: ADMIT Hospitalist; ATTEND Internal Medicine